=== PATIENT | male | born 1960 | race Caucasian/White ===

== ENCOUNTER 2025-10-18 15:24 | Inpatient (IN) | payer SELFPAY ==
[~2025-10-18] VITALS: Ht 181.6 cm; Wt 115.6 kg
--- NOTE | 2025-10-18 17:18 | DVH ---
CHEST RADIOGRAPH INDICATION: r/o ptx/effusion TECHNIQUE: Single frontal view of the chest was obtained COMPARISON: None FINDINGS: Lines and Tubes: None Lungs: Opacification of the right hemithorax with mediastinal shift to the left. No pneumothorax. Cardiomediastinal contours: Limited evaluation of the Heart size due to Complete opacification of the right hemithorax. Bones: No acute osseous abnormality. IMPRESSION: Complete opacification of the right hemithorax with leftward mediastinal shift which may be from large pleural effusion with associated atelectasis. Underlying pneumonia / mass can not be excluded.
[2025-10-18 17:28] LABS: Hematocrit 48.4 % (41.0-53.0); Hemoglobin 16.6 g/dL (13.5-17.5); Mean Corpuscular Hemoglobin 30.0 pg (28.0-32.0); Mean Corpuscular Volume 87.5 fL (80.0-100.0); Nucleated Red Blood Cells % 0.6 %
--- NOTE | 2025-10-18 17:32 | DVH ---
NON-CONTRAST CHEST COMPUTERIZED TOMOGRAPHY REASON FOR STUDY: Evaluate right pleural effusion COMPARISON: XY CHEST PORTABLE on DOS: 10/18/25 TECHNIQUE: The exam was performed on a multidetector spiral scanner. Spiral scans were acquired through the chest. 2-D coronal and sagittal reformatted images were provided. Radiation optimization: All CT scans at this facility use at least one of these dose optimization techniques: Automated exposure control mA and/or kV adjustment per patient size (includes targeted exams where dose is matched to clinical indication) or iterative reconstruction. RADIATION DOSE: CTDI: 25.25 mGy DLP: 1134.66 mGy-cm FINDINGS: There is complete consolidation of the right lung. There is slight heterogeneity of the collapsed right lung. There is an approximately 5.2 cm spherical lesion in the anterior portion of the collapsed right lung, likely within the right middle lobe. There is a very large right pleural effusion that is causing depression of the right hemidiaphragm and leftward shift of the mediastinum. There is no pericardial effusion. There is no thoracic aortic aneurysm. The visualized thyroid gland is unremarkable. No pathologic lymphadenopathy is identified by size criteria within the limitations of this noncontrast study. The visualized upper abdomen is grossly unremarkable. No acute osseous abnormality is identified. IMPRESSION: Large right pleural effusion causing depression of the right hemidiaphragm and leftward shift of the mediastinum and complete collapse of the right lung. There is a 5.2 cm spherical lesion in the anterior portion of the collapsed right lung that is concerning for malignancy. Recommend contrast-enhanced CT of the chest AFTER thoracentesis and the lung has been allowed to re-expand in order to better see the anatomy and evaluate the concerning lesion.
[2025-10-18 17:35] LABS: Chloride 101 mmol/L (98-107); Potassium 4.4 mmol/L (3.5-5.1); Sodium 140 mmol/L (136-145)
[2025-10-18 17:36] LABS: Anion Gap 12 (5-15); Carbon Dioxide 27 mmol/L (20-31)
[2025-10-18 17:37] LABS: Calcium 9.7 mg/dL (8.7-10.4)
--- NOTE | 2025-10-18 17:39 | ED.PDOC ---
SOB-HPI HPI Comments 65-year-old male who presents to the ED with chief complaint of shortness of breath. Patient's that he has been have shortness of breath for the past two weeks. Patient states symptoms started a few weeks ago when he went bowling and stated he felt a sharp sting of the right side of his chest after throwing the ball. Patient states since he has had increased shortness of breath which has worsened with exertion. Patient states he was seen at [facility] earlier today and states they told him he has a large pleural effusion on the right side of his chest and sent to the ED for further evaluation. Patient in the ED states he is having right-sided rib pain that radiates to the back. Patient otherwise in the ED has noted O2 saturation of 96% on room air. Chief Complaint: Shortness of Breath Time Seen by MD: 17:35 Reviewed notes: Medications, Allergies Information Source: Patient, Spouse Mode of Arrival: Ambulatory Brought in by: spouse Severity: Moderate Timing: Hours Past Medical History PAST MEDICAL HISTORY: Unknown Surgical History: Unknown Family History Family History: Unknown Social History Smoker: Non-Smoker Alcohol: Denies ETOH Use Drugs: Denies Drug Use Lives In: Home Constitutional: denies: chills, diaphoresis, fatigue, fever, malaise, sweats, weakness, others EENTM: denies: blurred vision, double vision, ear bleeding, ear discharge, ear drainage, ear pain, ear ringing, eye pain, eye redness, hearing loss, mouth pain, mouth swelling, nasal discharge, nose bleeding, nose congestion, nose pain, photophobia, tearing, throat pain, throat swelling, voice changes, others Respiratory: reports: shortness of breath; denies: cough, hemoptysis, orthopnea, SOB at rest, SOB with excertion, stridor, wheezing, others Cardiovascular: denies: chest pain, dizzy spells, diaphoresis, Dyspnea on exertion, edema, irregular heart beat, left arm pain, lightheadedness, palpi tations, PND, syncope, others Gastrointestinal: denies: abdomen distended, abdominal pain, blood streaked bowels, constipated, diarrhea, dysphagia, difficulty swallowing, hematemesis, melena, nausea, poor appetite, poor fluid intake, rectal bleeding, rectal pain, vomiting, others Genitourinary: denies: burning, dysuria, flank pain, frequency, hematuria, incontinence, penile discharge, penile sore, pain, testicle pain, testicle swelling, urgency, others Neurological: denies: dizziness, fainting, headache, left sided numbness, left sided weakness, numbness, paresthesia, pre-existing deficit, right sided numbness, right sided weakness, seizure, speech problems, tingling, tremors, weakness, others Musculoskeletal: denies: back pain, gout, joint pain, joint swelling, muscle pain, muscle stiffness, neck pain, others Integumetry: denies: bruises, change in color, change in hair/nails, dryness, laceration, lesions, lumps, rash, wounds, others Allergic/Immunocompromised: denies: Difficulty Healing, Frequent Infections, Hives, Itching, others Hematologic/Lymphatic: denies: anemia, blood clots, easy bleeding, easy bruis ing, swollen glands, others Endocrine: denies: excessive hunger, excessive sweating, excessive thirst, exc essive urination, flushing, intolerance to cold, intolerance to heat, unexplained weight gain, unexplained weight loss, others Psychiatric: denies: anxiety, bipolar disorder, depression, hopeless, panic disorder, schizophrenia, sleepless, suicidal, others All Other Systems: Reviewed and Negative Physical Exam General Appearance: No Apparent Distress, Normal HEENT: Normal ENT Inspection, Pharynx Normal, TMs Normal Neck: Full Range of Motion, Non-Tender, Normal, Normal Inspection Respiratory: Decreased Breath Sounds (Diminished lung sounds at a right side of chest, ), No Accessory Muscle Use, No Respiratory Distress Cardiovascular: No Edema, No JVD, No Murmur, No Gallop, Normal Peripheral Pulses, Regular Rate/Rhythm Breast Exam: Deferred Gastrointestinal: No Organomegaly, Non Tender, No Pulsatile Mass, Normal Bowel Sounds, Soft Genitalia: Deferred Pelvic: Deferred Rectal: Deferred Extremities: No calf tenderness, Normal capillary refill, Normal inspection, Normal range of motion, Non-tender, No pedal edema Musculoskeletal : Apperance: Normal Neurologic: Alert, clinical interviewer II-XII nml as Tested, No Motor Deficits, Normal Affect, Normal Mood, No Sensory Deficits Cerebellar Function: Normal Reflexes: Normal Skin: Dry, Normal Color, Warm Lymphatic: No Adenopathy Was a procedure done? Was a procedure done?: No Differential Dx Differential Diagnosis: Cardiogenic Shock, CHF, COPD, Pneumonia, Pulmonary Embolism, Respiratory Distress Comments Pleural effusion, sepsis, ARDS, pneumonia, X-Ray, Labs, Meds, VS Vital Signs Date Time Temp Pulse Resp B/P (MAP) Pulse Ox O2 Delivery O2 Flow Rate FiO2 10/18/25 19:03 98.0 102 17 129/83 (98) 96 98.0 10/18/25 19:03 102 17 129/83 10/18/25 18:35 Nasal Cannula* 2 28 10/18/25 18:33 111 16 164/90 10/18/25 18:33 98.0 103 17 164/96 (118) 97 98.0 10/18/25 15:39 118 10/18/25 15:29 98.2 118 20 152/86 94 98.2 Lab Test 10/18/25 18:10 10/18/25 17:16 Range/Units Troponin I High Sensitivity 3 L 3 L </=54 ng/L White Blood Count 14.4 H 4.4-10.8 10^3/uL Red Blood Count 5.54 4.5-5.90 10^6/uL Hemoglobin 16.6 13.5-17.5 g/dL Hematocrit 48.4 41.0-53.0 % Mean Corpuscular Volume 87.5 80.0-100.0 fL Mean Corpuscular Hemoglobin 30.0 28.0-32.0 pg Mean Corpuscular Hemoglobin Concent 34.3 32.0-36.0 g/dL Red Cell Distribution Width 12.5 11.8-14.3 % Platelet Count 387 140-450 10^3/uL Mean Platelet Volume 9.3 6.9-10.8 fL Neutrophils (%) (Auto) 89.0 H 37.0-80.0 % Lymphocytes (%) (Auto) 6.1 L 10.0-50.0 % Monocytes (%) (Auto) 4.1 0.0-12.0 % Eosinophils (%) (Auto) 0.2 0.0-7.0 % Basophils (%) (Auto) 0.6 0.0-2.0 % Neutrophils # (Auto) 12.9 H 1.6-8.6 10 ^3/uL Lymphocytes # (Auto) 0.9 0.4-5.4 10 ^3/uL Monocytes # (Auto) 0.6 0-1.3 10 ^3/uL Eosinophils # (Auto) 0 0-0.8 10 ^3/uL Basophils # (Auto) 0.1 0-0.2 10 ^3/uL Nucleated Red Blood Cells 0.6 % Sodium Level 140 136-145 mmol/L Potassium Level 4.4 3.5-5.1 mmol/L Chloride Level 101 98-107 mmol/L Carbon Dioxide Level 27 20-31 mmol/L Anion Gap 12 5-15 Blood Urea Nitrogen 15 9-23 mg/dL Creatinine 1.07 0.700-1.30 mg/dL Glomerular Filtration Rate Calc 77 >90 mL/min BUN/Creatinine Ratio 14.0 10.0-20.0 Serum Glucose 126 H 74-106 mg/dL Calcium Level 9.7 8.7-10.4 mg/dL B-Type Natriuretic Peptide 64.57 0-100 pg/mL Current Medications Medications (Trade) Dose Ordered Sig/Jomar Route Start Time Stop Time Status Last Admin Morphine Sulfate 4 mg ONCE ONCE IV 10/18/25 18:30 10/18/25 18:43 DC 10/18/25 18:33 Ondansetron HCl (Zofran) 4 mg ONCE ONCE IV 10/18/25 18:30 10/18/25 18:43 DC 10/18/25 18:33 [place] [id number] Ph: [phone] DIAGNOSTIC IMAGING Diagnostic Imaging Report : [id number] Signed PATIENT: DEVI JAUREGUI ACCT: [id number] UNIT: [id number] : 1960 LOC: ER ROOM / BED: / AGE / SEX: 65 / M ADM STATUS: REG ER SERVICE 1645 ORDERING PHYSICIAN: YINKA CHAPMAN MD PROCEDURE(s): CXRP - CHEST PORTABLE REASON: r/o ptx/effusion ORDER NUMBER(s): [id number], ACCESSION NUMBER(s): [id number] CHEST RADIOGRAPH INDICATION: r/o ptx/effusion TECHNIQUE: Single frontal view of the chest was obtained COMPARISON: None FINDINGS: Lines and Tubes: None Lungs: Opacification of the right hemithorax with mediastinal shift to the left. No pneumothorax. Cardiomediastinal contours: Limited evaluation of the Heart size due to Complete opacification of the right hemithorax. Bones: No acute osseous abnormality. IMPRESSION: Complete opacification of the right hemithorax with leftward mediastinal shift which may be from large pleural effusion with associated atelectasis. Underlying pneumonia / mass can not be excluded. ATED BY: MIRA PAUL DO DICTATED DATE/TIME: 10/18/251715 SIGNED BY: MIRA PAUL DO SIGNED DATE/TIME: 10/18/251715 CC: X-Ray, Labs, Meds, VS Comment 65-year-old male here today with a presentation consistent with a significant right-sided pleural effusion with a evidence of a mass concerning for malignancy as per chest x-ray/CT scan. Patient is saturating in the upper 90s on room air and is in no significant respiratory distress. Patient was given pain medication was significantly improved his symptoms as well. Given the mass seen on imaging and the patient overall stable on room air and without evidence of significant respiratory distress, plan was made to defer the thoracentesis versus chest tube for the admitting team after evaluating him in the morning with a likely pulmonology consultation as it is likely that the patient will require specialized testing such as pathology and serology tests to evaluate for tumor markers. Plan made to admit the patient for further management and care. Images Reviewed?: Images reviewed and evaluated by me Time of 1ST Reevaluation: 18:05 Reevaluation 1ST: Unchanged Patient Education/Counseling: Diagnosis, Treatment Family Education/Counseling: Diagnosis, Treatment SEPSIS Sepsis Screen Date sepsis recognized/suspect: Oct 18, 2025 Time Sepsis recognized/suspect: 1529 Recent Procedure: No On Antibiotic Therapy: No Respiratory Rate >20: No Heart Rate >90: Yes Temp<36 C (96.8 F) or >38.3 C: No SBP <90 or MAP <65 mmHG: No New Acute Mental Status Change: No Is the patient on CPAP, BIPAP,: No Physician Orders Electrocardigram (10/18/25 15:48) Chest Portable (10/18/25 16:45) Troponin-I Hs (10/18/25 19:45) Chest Without Contrast (10/18/25 16:52) Vital Signs Date Time Temp Pulse Resp B/P (MAP) Pulse Ox O2 Delivery O2 Flow Rate FiO2 10/18/25 19:03 98.0 102 17 129/83 (98) 96 98.0 10/18/25 19:03 102 17 129/83 10/18/25 18:35 Nasal Cannula* 2 28 10/18/25 18:33 111 16 164/90 10/18/25 18:33 98.0 103 17 164/96 (118) 97 98.0 10/18/25 15:39 118 10/18/25 15:29 98.2 118 20 152/86 94 98.2 Laboratory Tests Test 10/18/25 17:16 White Blood Count 14.4 10^3/uL (4.4-10.8) H Medications Medications Dose Ordered Sig/Jomar Route Start Time Stop Time Status Last Admin Dose Admin Morphine Sulfate 4 mg ONCE ONCE IV 10/18/25 18:30 10/18/25 18:43 DC 10/18/25 18:33 Ondansetron HCl 4 mg ONCE ONCE IV 10/18/25 18:30 10/18/25 18:43 DC 10/18/25 18:33 Departure 1 Departure Time of Disposition: 19:43 Impression: Primary Impression: Pleural effusion Additional Impression: Lung mass Disposition: ADMITTED INPATIENT Admit to: Tele Condition: Guarded Critical Care Note Critical Care Time?: Yes (30 min-critical care time only) Stability Stability form required: No Heart Score Heart Score: Heart Score Response (Comments) Value History Slightly Suspicious 0 EKG Normal 0 Age 45-64 1 Risk Factors No known risk factors 0 Troponin Normal limit 0 Total 1 I personally scribed for YINKA CHAPMAN MD ([facility]) on 10/18/25 at 17:39. Electron[facility] submitted by [facility]da Carlson [facility] I personally scribed for YINKA CHAPMAN MD ([email or web address]) on 10/18/25 at 17:40. Electronically submitted by Eda Carlson ([facility]). YINKA CHAPMAN MD Oct 18, 2025 17:39
[2025-10-18 17:42] LABS: BUN/Creatinine Ratio 14.0 (10.0-20.0); Blood Urea Nitrogen 15 mg/dL (9-23)
[2025-10-18 17:45] LABS: Glucose 126 mg/dL (74-106)
[2025-10-18] MEDS: MORPHINE SULFATE 4 MG/ML SYR/VIAL IV ONE (18:33)
[2025-10-18] MEDS: ONDANSETRON HCL 4 MG/2 ML VIAL IV ONE (18:33)
[2025-10-18] MEDS ORDERED: TEMAZEPAM 15 MG CAP PO PRN (19:45)
[2025-10-18] MEDS ORDERED: ACETAMINOPHEN 325 MG TAB PO PRN (19:45)
[2025-10-18 20:19] VITALS: PULSE 103; RESP 20; O2SAT 97
[2025-10-18] MEDS: HYDROcodone-ACET 5/325MG TAB PO PRN (22:12)
--- NOTE | 2025-10-18 22:15 | DVHHP2 ---
History of Present Illness Reason for Visit: Shortness for breath History of Present Illness 65-year-old male presents for evaluation of shortness for breath. Patient reports developing shortness for breath proximally two weeks ago after he went bowling and felt a sharp sting to his right side when he threw the ball. He states that since then the shortness for breath has become worse especially with exertion. No cough or fever. He also reports right-sided rib pain. Denies chest pain Past Medical History Denies Past Surgical History Appendectomy, hernia repair Family History Noncontributory Smoke: No ALCOHOL: occassional Drugs: None Lives: with Family Review of Systems Review of Systems Review of systems are currently negative otherwise addressed in HPI. Allergies: Coded Allergies: Penicillins (Verified Allergy, Unknown, 10/18/25) Medications Current Medications Medications Dose Ordered Sig/Jomar Route Start Time Stop Time Status Last Admin Dose Admin Albuterol 2.5 mg Q6HPRN PRN NEB 10/18/25 19:45 Acetaminophen/ Hydrocodone Bitart 1 tab Q4HP PRN PO 10/18/25 19:45 Temazepam 15 mg QHSP PRN PO 10/18/25 19:45 Ondansetron HCl 4 mg Q4HP PRN IV 10/18/25 19:45 Acetaminophen 650 mg Q6HP PRN PO 10/18/25 19:45 Exam Vital Signs Vital Signs Date Time Temp Pulse Resp B/P (MAP) Pulse Ox O2 Delivery O2 Flow Rate FiO2 10/18/25 20:19 98.1 103 18 126/84 (98) 97 98.1 10/18/25 20:19 Nasal Cannula* 2 28 Exam Gen: 65-year-old male in mild distress, obese Skin: Warm, dry, normal color and texture, no rash. HEENT: Normocephalic atraumatic, mucous membranes moist and pink. Neck: Cervical and supraclavicular nodes normal without enlargement, trachea is midline, thyroid gland is normal without masses. Pulmonary: Absent breath sounds right lung Cardiac: Regular rate and rhythm. No murmur Abdomen: Soft, nontender, nondistended, bowel sounds present all 4 quadrants, no guarding, no rigidity, no organomegaly. Extremities: No cyanosis, clubbing, no edema Neuro: Cranial nerves II through XII grossly intact, normal affect and speech, no focal motor deficits. Labs/Xrays ORDERING PHYSICIAN: YINKA CHAPMAN MD PROCEDURE(s): CX2CT - CHEST WITHOUT CONTRAST REASON: eval for right sided effusion ORDER NUMBER(s): [id number], ACCESSION NUMBER(s): [id number] NON-CONTRAST CHEST COMPUTERIZED TOMOGRAPHY REASON FOR STUDY: Evaluate right pleural effusion COMPARISON: XY CHEST PORTABLE on DOS: 10/18/25 TECHNIQUE: The exam was performed on a multidetector spiral scanner. Spiral scans were acquired through the chest. 2-D coronal and sagittal reformatted images were provided. Radiation optimization: All CT scans at this facility use at least one of these dose optimization techniques: Automated exposure control mA and/or kV adjustment per patient size (includes targeted exams where dose is matched to clinical indication) or iterative reconstruction. RADIATION DOSE: CTDI: 25.25 mGy DLP: 1134.66 mGy-cm FINDINGS: There is complete consolidation of the right lung. There is slight heterogeneity of the collapsed right lung. There is an approximately 5.2 cm spherical lesion in the anterior portion of the collapsed right lung, likely within the right middle lobe. There is a very large right pleural effusion that is causing depression of the right hemidiaphragm and leftward shift of the mediastinum. There is no pericardial effusion. There is no thoracic aortic aneurysm. The visualized thyroid gland is unremarkable. No pathologic lymphadenopathy is identified by size criteria within the limitations of this noncontrast study. The visualized upper abdomen is grossly unremarkable. No acute osseous abnormality is identified. IMPRESSION: Large right pleural effusion causing depression of the right hemidiaphragm and leftward shift of the mediastinum and complete collapse of the right lung. There is a 5.2 cm spherical lesion in the anterior portion of the collapsed right lung that is concerning for malignancy. Recommend contrast-enhanced CT of the chest AFTER thoracentesis and the lung has been allowed to re-expand in order to better see the anatomy and evaluate the concerning lesion. Labs Test 10/18/25 20:13 10/18/25 17:16 Range/Units Troponin I High Sensitivity < 3 L </=54 ng/L White Blood Count 14.4 H 4.4-10.8 10^3/uL Red Blood Count 5.54 4.5-5.90 10^6/uL Hemoglobin 16.6 13.5-17.5 g/dL Hematocrit 48.4 41.0-53.0 % Mean Corpuscular Volume 87.5 80.0-100.0 fL Mean Corpuscular Hemoglobin 30.0 28.0-32.0 pg Mean Corpuscular Hemoglobin Concent 34.3 32.0-36.0 g/dL Red Cell Distribution Width 12.5 11.8-14.3 % Platelet Count 387 140-450 10^3/uL Mean Platelet Volume 9.3 6.9-10.8 fL Neutrophils (%) (Auto) 89.0 H 37.0-80.0 % Lymphocytes (%) (Auto) 6.1 L 10.0-50.0 % Monocytes (%) (Auto) 4.1 0.0-12.0 % Eosinophils (%) (Auto) 0.2 0.0-7.0 % Basophils (%) (Auto) 0.6 0.0-2.0 % Neutrophils # (Auto) 12.9 H 1.6-8.6 10 ^3/uL Lymphocytes # (Auto) 0.9 0.4-5.4 10 ^3/uL Monocytes # (Auto) 0.6 0-1.3 10 ^3/uL Eosinophils # (Auto) 0 0-0.8 10 ^3/uL Basophils # (Auto) 0.1 0-0.2 10 ^3/uL Nucleated Red Blood Cells 0.6 % Sodium Level 140 136-145 mmol/L Potassium Level 4.4 3.5-5.1 mmol/L Chloride Level 101 98-107 mmol/L Carbon Dioxide Level 27 20-31 mmol/L Anion Gap 12 5-15 Blood Urea Nitrogen 15 9-23 mg/dL Creatinine 1.07 0.700-1.30 mg/dL Glomerular Filtration Rate Calc 77 >90 mL/min BUN/Creatinine Ratio 14.0 10.0-20.0 Serum Glucose 126 H 74-106 mg/dL Calcium Level 9.7 8.7-10.4 mg/dL B-Type Natriuretic Peptide 64.57 0-100 pg/mL SEPSIS Sepsis Screen Date sepsis recognized/suspect: Oct 18, 2025 Time Sepsis recognized/suspect: 2021 Recent Procedure: No On Antibiotic Therapy: No Respiratory Rate >20: No Heart Rate >90: No Temp<36 C (96.8 F) or >38.3 C: No SBP <90 or MAP <65 mmHG: No New Acute Mental Status Change: No Is the patient on CPAP, BIPAP,: No Physician Orders Electrocardigram (10/18/25 15:48) Chest Portable (10/18/25 16:45) Chest Without Contrast (10/18/25 16:52) Albuterol Medneb (Ventolin Medneb) (10/18/25 19:45) * Radiologist Consult (10/18/25 19:40) *Consult (10/18/25 19:40) Basic Metabolic Panel (10/19/25 04:00) Admit (10/18/25 19:40) Hydrocodone-Acet 5/325mg Tab ([place] 5/32 (10/18/25 19:45) Temazepam (Restoril) (10/18/25 19:45) Ondansetron Hcl (Zofran) (10/18/25 19:45) Complete Blood Count (10/19/25 04:00) Cardiac Diet-2gna,Lofat,Lochol (10/19/25 Breakfast) Echo 2d Mode Cardiac Dop (10/18/25 19:40) Condition: Stable (10/18/25 19:40) Acetaminophen Tablet (Tylenol Tablet) (10/18/25 19:45) Bedrest With Bathroom Privileg (10/18/25 19:40) D-Dimer (10/18/25 22:10) Vital Signs Date Time Temp Pulse Resp B/P (MAP) Pulse Ox O2 Delivery O2 Flow Rate FiO2 10/18/25 20:19 98.1 103 18 126/84 (98) 97 98.1 10/18/25 20:19 103 20 97 Nasal Cannula* 2 28 10/18/25 20:00 103 10/18/25 19:03 98.0 102 17 129/83 (98) 96 98.0 10/18/25 19:03 102 17 129/83 10/18/25 18:35 Nasal Cannula* 2 28 10/18/25 18:33 111 16 164/90 10/18/25 18:33 98.0 103 17 164/96 (118) 97 98.0 10/18/25 15:39 118 10/18/25 15:29 98.2 118 20 152/86 94 98.2 Laboratory Tests Test 10/18/25 17:16 White Blood Count 14.4 10^3/uL (4.4-10.8) H Medications Medications Dose Ordered Sig/Jomar Route Start Time Stop Time Status Last Admin Dose Admin Morphine Sulfate 4 mg ONCE ONCE IV 10/18/25 18:30 10/18/25 18:43 DC 10/18/25 18:33 4 MG Ondansetron HCl 4 mg ONCE ONCE IV 10/18/25 18:30 10/18/25 18:43 DC 10/18/25 18:33 4 MG Assessment/Plan Assessment/Plan Assessment Large right pleural effusion Acute respiratory distress Obesity Plan Admit the patient to Med surge to the hospitalist Radiology/pulmonary consult Med nebs Continue treatment per orders. Plan discussed with: Patient My Orders Orders - NEIL JEAN-BAPTISTE Procedure Category Date Status Time Albuterol Medneb PHA 10/18/25 In Process (Ventolin Medneb) 19:45 * Radiologist Consult CONS 10/18/25 Transmitted 19:40 *Consult CONS 10/18/25 Transmitted 19:40 Basic Metabolic Panel LAB 10/19/25 Verified 04:00 Admit ADMIT 10/18/25 Transmitted 19:40 Hydrocodone-Acet PHA 10/18/25 In Process 5/325mg Tab ([place] 19:45 Temazepam (Restoril) PHA 10/18/25 In Process 19:45 Ondansetron Hcl PHA 10/18/25 In Process (Zofran) 19:45 Complete Blood Count LAB 10/19/25 Verified 04:00 Cardiac DIET 10/19/25 Transmitted Diet-2gna,Lofat,Lochol Breakfast Echo 2d Mode Cardiac US 10/18/25 Logged DOP 19:40 Condition: Stable KORTNEY 10/18/25 In Process 19:40 Acetaminophen Tablet PHA 10/18/25 In Process (Tylenol Tablet) 19:45 Bedrest With Bathroom KORTNEY 10/18/25 In Process Privileg 19:40 D-Dimer LAB 10/18/25 Logged 22:10 Date of Service: Oct 18, 2025 Billing Provider: NEIL JEAN-BAPTISTE Common Visit Codes: [id number] INP/OBS CARE (HIGH) NEIL JEAN-BAPTISTE Oct 18, 2025 22:15
[2025-10-18 22:52] VITALS: BP 126/84; PULSE 103; RESP 18; TEMP 98.1; O2SAT 97
[2025-10-19] VITALS (9 sets, daily range): BP systolic 115–147; BP diastolic 62–96; PULSE 89–100; RESP 17–20; TEMP 96.8–98.3; O2SAT 93–97
--- NOTE | 2025-10-19 07:07 | ECG ---
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
[2025-10-19 08:40] LABS: Hematocrit 47.5 % (41.0-53.0); Hemoglobin 16.0 g/dL (13.5-17.5); Mean Corpuscular Hemoglobin 29.7 pg (28.0-32.0); Mean Corpuscular Volume 88.3 fL (80.0-100.0); Nucleated Red Blood Cells % 0.2 %
[2025-10-19 08:41] LABS: Chloride 101 mmol/L (98-107); Potassium 4.4 mmol/L (3.5-5.1); Sodium 140 mmol/L (136-145)
[2025-10-19 08:42] LABS: Anion Gap 10 (5-15); Carbon Dioxide 29 mmol/L (20-31)
[2025-10-19 08:43] LABS: Calcium 9.9 mg/dL (8.7-10.4)
[2025-10-19 08:48] LABS: BUN/Creatinine Ratio 15.7 (10.0-20.0); Blood Urea Nitrogen 19 mg/dL (9-23)
[2025-10-19 08:52] LABS: Glucose 135 mg/dL (74-106)
[2025-10-19] MEDS: ONDANSETRON HCL 4 MG/2 ML VIAL IV PRN (09:01)
[2025-10-19 10:10] LABS: INR 1.12 (0.9-1.15); Partial Thromboplastin Time 26.6 SEC (24.5-34.5); Prothrombin Time 11.7 sec (9.3-11.8)
[2025-10-19] MEDS: MORPHINE SULFATE 4 MG/ML SYR/VIAL IV PRN (14:13)
--- NOTE | 2025-10-19 14:57 | DVH ---
US THORACENTESIS, HISTORY: Large pleural effusion. PROCEDURE: Informed consent was obtained. The patient was seated on the bed. A limited localization ultrasound of the right thorax was obtained, and the optimal approach was marked on the skin. The area was prepped with chlorhexidine which was allowed to dry and draped in the usual sterile fashion. Time out was performed. The skin and the soft tissues were infiltrated with 1% lidocaine. A 5.5 Norwegian centesis needle catheter was advanced into right pleural space. Following aspiration of fluid, the catheter was advanced and the needle removed. About 1500 cc of fluid was drained. No immediate complication was identified. FINDINGS: Large right pleural effusion. Aspirated fluid is serosanguinous. IMPRESSION: right thoracentesis with 1.5L removed.
--- NOTE | 2025-10-19 16:30 | DVH ---
CHEST RADIOGRAPH INDICATION: S/P THORACENTESIS TECHNIQUE: Single frontal view of the chest was obtained COMPARISON: XY CHEST PORTABLE on DOS: 10/18/25 FINDINGS: Lines and Tubes: None Lungs: Persistent opacification of the right kandice thorax is noted unchanged from 10/18/2025. Pleura: No effusion. No pneumothorax. Cardiomediastinal contours: Unremarkable Bones: No acute osseous abnormality. IMPRESSION: 1. Persistent opacification right kandice thorax. Findings consistent with large right pleural effusion.
--- NOTE | 2025-10-19 17:44 | DVHPN2 ---
Subjective SOB still present Reviewed: H&P Changes from previous H/P or p: No Changes Objective Vitals Vital Signs Date Time Temp Pulse Resp B/P (MAP) Pulse Ox O2 Delivery O2 Flow Rate FiO2 10/19/25 16:56 97.2 89 19 147/84 (105) 96 97.2 10/19/25 07:02 Room Air* 0 21 General Appearance: Alert, Oriented X3 HEENT: Atraumatic Cardiovascular: Regular rate, Normal S1, Normal S2 Abdomen: Normal bowel sounds Medications Current Medications Medications Dose Ordered Sig/Jomar Route Start Time Stop Time Status Last Admin Dose Admin Albuterol 2.5 mg Q6HPRN PRN NEB 10/18/25 19:45 Acetaminophen/ Hydrocodone Bitart 1 tab Q4HP PRN PO 10/18/25 19:45 10/19/25 09:00 1 TAB Temazepam 15 mg QHSP PRN PO 10/18/25 19:45 Ondansetron HCl 4 mg Q4HP PRN IV 10/18/25 19:45 10/19/25 14:12 4 MG Acetaminophen 650 mg Q6HP PRN PO 10/18/25 19:45 Morphine Sulfate 2 mg Q4HPRN PRN IV 10/19/25 14:15 10/19/25 14:13 2 MG Laboratory Results Laboratory Tests 10/19/25 08:10 Chemistry Test 10/19/25 08:10 Calcium Level 9.9 mg/dL (8.7-10.4) Coagulation Test 10/18/25 20:13 10/19/25 09:37 D-Dimer, Quantitative 0.60 mg/L FEU (0.0-0.49) H Prothrombin Time 11.7 sec (9.3-11.8) Prothrombin Time INR 1.12 (0.9-1.15) Activated Partial Thromboplast Time 26.6 SEC (24.5-34.5) Assessment/Plan Assessment/Plan Large right pleural effusion acute hypoxic respiratory failure due to pleural effusion Obesity Tx Pending thoracocentesis Oxygen Plan discussed with: Patient My Orders Orders - RYAN CAPPS MD Procedure Category Date Status Time Thoracentesis US 10/19/25 Resulted Morphine Sulfate PHA 10/19/25 In Process Injection 14:15 Date of Service: Oct 19, 2025 Billing Provider: RYAN CAPPS MD Common Visit Codes: [id number] INP/OBS CARE(HIGH) RYAN CAPPS MD Oct 19, 2025 17:44
--- NOTE | 2025-10-19 23:50 | DVHINCON2 ---
Date of service: Oct 18, [address] Vaca Reason for Consultation Acute hypoxic respiratory failure and pleural effusion History of Present Illness A 65-year-old man with no significant past medical history except for hernia repair and appendectomy who presented to ED on 10/18/25 with chief complaint of shortness of breath. Patient reported shortness of breath x2 weeks; symptoms starting a few weeks ago when he went bowling and felt a sharp sting to his right side when he threw the ball. He has had increased shortness of breath s katelin, which has worsened with exertion. Patient was seen at [facility] on day of presentation and was told he had a large right pleural effusion, sent to the ED for further evaluation. While in the ED, patient c/o right-sided rib pain radiating to the back. O2 saturation was 96% on room air. Patient was admitted for further care. Pulmonary consultation is requested for evaluation and management of acute hypoxic respiratory failure and pleural effusion. Review of Systems: 14-point review of systems negative unless otherwise noted above. Past Medical History: Denies Past Surgical History: Appendectomy, hernia repair Medications: Reviewed. Allergies: Penicillin Family History: No family history of premature CAD. No family history of lung disorders. Social History: Nonsmoker. Occasional alcohol use. No illicit drug use. Family History: Patient reports no known family medical history. Allergies: Coded Allergies: Penicillins (Verified Allergy, Unknown, 10/18/25) Home Meds No Active Prescriptions or Reported Meds Current Medications Current Medications Medications (Trade) Dose Ordered Sig/Jomar Route PRN Reason Start Time Stop Time Status Last Admin Morphine Sulfate 2 mg Q4HPRN PRN IV SEVERE PAIN (7-10 PAIN SCALE) 10/19/25 14:15 10/19/25 18:28 Vital Signs Vital Signs Date Time Temp Pulse Resp B/P (MAP) Pulse Ox O2 Delivery O2 Flow Rate FiO2 10/19/25 21:25 95 Nasal Cannula* 2 28 10/19/25 21:00 98.3 96 18 120/62 (81) 98.3 Physical Exam Gen.: Patient lying in bed in no apparent distress. On supplemental oxygen. Head: Normocephalic, atraumatic. Eyes: EOMI/PERRLA. Ears: Normal hearing. Normal anatomy. Neck/trachea: Trachea midline, supple. Nose: Normal external anatomy. Mouth: Moist mucous membranes. Chest: Decreased air entry bilaterally. No wheezing or rhonchi. Cardiovascular: Positive S1, positive S2. Regular rate and rhythm. Abdomen: Positive bowel sounds in all 4 quadrants. Soft, non-tender, non- distended. : Deferred. Rectal: Deferred. Skin: Warm, dry. Intact. Extremities: 2+ radial pulses bilaterally. No lower extremity edema. Neuro: Awake, alert, oriented x3. No gross motor or sensory deficits. Cranial nerves II through XII intact. Gait not assessed. Labs/Diagnostic Data Labs Test 10/19/25 14:30 10/19/25 09:37 10/19/25 08:10 10/18/25 20:13 Range/Units Body Fluid Source Pleural fluid Body Fluid pH 8.0 Body Fluid WBC (Manual) 1808 H 0-200 CUMM Body Fluid RBC (Manual) 96565 H 0-2000 CUMM Body Fluid Mononuclear Cells 40 % Body Fluid Polymorphonuclear Cells 60 H 0-25 % Prothrombin Time 11.7 9.3-11.8 sec Prothrombin Time INR 1.12 0.9-1.15 Activated Partial Thromboplast Time 26.6 24.5-34.5 SEC White Blood Count 11.3 H 4.4-10.8 10^3/uL Red Blood Count 5.38 4.5-5.90 10^6/uL Hemoglobin 16.0 13.5-17.5 g/dL Hematocrit 47.5 41.0-53.0 % Mean Corpuscular Volume 88.3 80.0-100.0 fL Mean Corpuscular Hemoglobin 29.7 28.0-32.0 pg Mean Corpuscular Hemoglobin Concent 33.7 32.0-36.0 g/dL Red Cell Distribution Width 12.9 11.8-14.3 % Platelet Count 391 140-450 10^3/uL Mean Platelet Volume 9.8 6.9-10.8 fL Neutrophils (%) (Auto) 85.9 H 37.0-80.0 % Lymphocytes (%) (Auto) 8.2 L 10.0-50.0 % Monocytes (%) (Auto) 5.7 0.0-12.0 % Eosinophils (%) (Auto) 0.0 0.0-7.0 % Basophils (%) (Auto) 0.2 0.0-2.0 % Neutrophils # (Auto) 9.7 H 1.6-8.6 10 ^3/uL Lymphocytes # (Auto) 0.9 0.4-5.4 10 ^3/uL Monocytes # (Auto) 0.6 0-1.3 10 ^3/uL Eosinophils # (Auto) 0 0-0.8 10 ^3/uL Basophils # (Auto) 0 0-0.2 10 ^3/uL Nucleated Red Blood Cells 0.2 % Sodium Level 140 136-145 mmol/L Potassium Level 4.4 3.5-5.1 mmol/L Chloride Level 101 98-107 mmol/L Carbon Dioxide Level 29 20-31 mmol/L Anion Gap 10 5-15 Blood Urea Nitrogen 19 9-23 mg/dL Creatinine 1.21 0.700-1.30 mg/dL Glomerular Filtration Rate Calc 67 >90 mL/min BUN/Creatinine Ratio 15.7 10.0-20.0 Serum Glucose 135 H 74-106 mg/dL Calcium Level 9.9 8.7-10.4 mg/dL D-Dimer, Quantitative 0.60 H 0.0-0.49 mg/L FEU Troponin I High Sensitivity < 3 L </=54 ng/L Test 10/18/25 17:16 Range/Units B-Type Natriuretic Peptide 64.57 0-100 pg/mL Assessment Impression: Acute hypoxic respiratory failure Dependence on supplemental oxygen Pleural effusion Atelectasis, compressive Elevated D-dimer Obesity BMI 36.4 Snoring, likely DALY Plan: Supplemental oxygen Titrate to keep O2 sats above 92%. CXR notable for Complete opacification of the right hemithorax with leftward mediastinal shift which may be from large pleural effusion with associated atelectasis. Underlying pneumonia/mass cannot be excluded. CT chest reviewed; Large right pleural effusion causing depression of the right hemidiaphragm and leftward shift of the mediastinum and complete collapse of the right lung. A 5.2 cm spherical lesion in the anterior portion of the collapsed right lung that is concerning for malignancy. Recommend contrast-enhanced CT of the chest AFTER thoracentesis and the lung has been allowed to re-expand in order to better evaluate. Plan for right thoracentesis by IR Follow up Cardiology recs Bronchodilators. Incentive spirometry Monitor renal function. Monitor electrolytes. Supplement as necessary. Monitor ins and outs. Pain control Avoid oversedation Recommend diet and lifestyle modifications for weight reduction Obesity complicates all care DVT prophylaxis. Prognosis: Poor given patient's multiple co-morbidities. Rest of plan per hospitalist and other consultants. Thank you, Dr. Vaca, for allowing me to participate in this patient's care. Further recommendations will depend on the patient's clinical course. Please do not hesitate to contact me if you have any questions or concerns. This medical document was created using an electronic medical record system with [employer] dictation system. Although these documentations are being carefully reviewed, there may still be some phonetic and typographical changes. The errors are purely typographical, due to imperfection on the software program, and do not reflect any compromise in the patient's medical care. Plan discussed with: Patient, Other (RN/MD) Visit Coding Pulmonary Billing Provider: OSBALDO AYOUB MD Date of Service if different f: Oct 18, 2025 Common Visit Codes: [id number] INP/OBS CARE (HIGH) OSBALDO AYOUB MD Oct 19, 2025 23:50
--- NOTE | 2025-10-19 23:51 | DVHPN2 ---
Subjective DOS: 10/19/2025 Patient seen and examined at bedside. Remains on supplemental oxygen Overnight events reviewed. Reviewed: H&P Changes from previous H/P or p: No Changes Objective Vitals Vital Signs Date Time Temp Pulse Resp B/P (MAP) Pulse Ox O2 Delivery O2 Flow Rate FiO2 10/19/25 21:25 95 Nasal Cannula* 2 28 10/19/25 21:00 98.3 96 18 120/62 (81) 98.3 Exam Gen.: Patient lying in bed in no apparent distress. On supplemental oxygen. Head: Normocephalic, atraumatic. Eyes: EOMI/PERRLA. Ears: Normal hearing. Normal anatomy. Neck/trachea: Trachea midline, supple. Nose: Normal external anatomy. Mouth: Moist mucous membranes. Chest: Decreased air entry bilaterally. No wheezing or rhonchi. Cardiovascular: Positive S1, positive S2. Regular rate and rhythm. Abdomen: Positive bowel sounds in all 4 quadrants. Soft, non-tender, non- distended. : Deferred. Rectal: Deferred. Skin: Warm, dry. Intact. Extremities: 2+ radial pulses bilaterally. No lower extremity edema. Neuro: Awake, alert, oriented x3. No gross motor or sensory deficits. Cranial nerves II through XII intact. Gait not assessed. General Appearance: Alert, Oriented X3 HEENT: Atraumatic Cardiovascular: Regular rate, Normal S1, Normal S2 Abdomen: Normal bowel sounds Medications Current Medications Medications Dose Ordered Sig/Jomar Route Start Time Stop Time Status Last Admin Dose Admin Albuterol 2.5 mg Q6HPRN PRN NEB 10/18/25 19:45 Acetaminophen/ Hydrocodone Bitart 1 tab Q4HP PRN PO 10/18/25 19:45 10/19/25 09:00 Temazepam 15 mg QHSP PRN PO 10/18/25 19:45 Ondansetron HCl 4 mg Q4HP PRN IV 10/18/25 19:45 10/19/25 18:24 Acetaminophen 650 mg Q6HP PRN PO 10/18/25 19:45 Morphine Sulfate 2 mg Q4HPRN PRN IV 10/19/25 14:15 10/19/25 18:28 Laboratory Results Laboratory Tests 10/19/25 08:10 Chemistry Test 10/19/25 08:10 Calcium Level 9.9 mg/dL (8.7-10.4) Coagulation Test 10/19/25 09:37 Prothrombin Time 11.7 sec (9.3-11.8) Prothrombin Time INR 1.12 (0.9-1.15) Activated Partial Thromboplast Time 26.6 SEC (24.5-34.5) Assessment/Plan Assessment/Plan Impression: Acute hypoxic respiratory failure Dependence on supplemental oxygen Pleural effusion Atelectasis, compressive Elevated D-dimer Obesity Events: Remains on supplemental oxygen, 2 LPM NC Taper O2 as tolerated S/p right thoracentesis today with 1.5 liters of fluid removed from right pleural space. Continue bronchodilators Incentive spirometry Pain control Avoid oversedation Cardiology recs appreciated Labs and imaging reviewed. Rest of plan as noted below. Plan: Supplemental oxygen Titrate to keep O2 sats above 92%. CXR notable for complete opacification of the right hemithorax with leftward mediastinal shift which may be from large pleural effusion with associated atelectasis. Underlying pneumonia/mass cannot be excluded. CT chest reviewed; Large right pleural effusion causing depression of the right hemidiaphragm and leftward shift of the mediastinum and complete collapse of the right lung. A 5.2 cm spherical lesion in the anterior portion of the collapsed right lung that is concerning for malignancy. Recommend contrast-enhanced CT of the chest AFTER thoracentesis and the lung has been allowed to re-expand in order to better evaluate. Follow up Cardiology recs Bronchodilators. Incentive spirometry Monitor renal function. Monitor electrolytes. Supplement as necessary. Monitor ins and outs. Pain control Avoid oversedation Recommend diet and lifestyle modifications for weight reduction Obesity complicates all care DVT prophylaxis. Prognosis: Poor given patient's multiple co-morbidities. Rest of plan per hospitalist and other consultants. Thank you, Dr. Vaca, for allowing me to participate in this patient's care. Further recommendations will depend on the patient's clinical course. Please do not hesitate to contact me if you have any questions or concerns. This medical document was created using an electronic medical record system with [employer] system. Although these documentations are being carefully reviewed, there may still be some phonetic and typographical changes. The errors are purely typographical, due to imperfection on the software program, and do not reflect any compromise in the patient's medical care. Plan discussed with: Patient, Other (RN) My Orders Orders - OSBALDO AYOUB MD Procedure Category Date Status Time Obtain Consent For: ORDERS 10/19/25 Transmitted 10:48 Obtain Consent For KORTNEY 10/19/25 In Process Anesthesia 10:48 Body Fluid Culture W/ SERENITY 10/19/25 In Process GS 10:53 Glucose Body Fluid LAB 10/19/25 In Process 10:49 Protein, Body Fluid LAB 10/19/25 In Process 10:49 Lactate LAB 10/19/25 In Process Dehydrogenase, Fluid 10:49 Cytology SERENITY 10/19/25 Transmitted 10:53 Visit Coding Pulmonary Billing Provider: OSBALDO AYOUB MD Date of Service if different f: Oct 19, 2025 Common Visit Codes: [id number] INP/OBS CARE(HIGH) OSBALDO AYOUB MD Oct 19, 2025 23:51
[2025-10-20] VITALS (11 sets, daily range): BP systolic 118–142; BP diastolic 79–88; PULSE 80–87; RESP 18; TEMP 97.5–98.2; O2SAT 94–99
[2025-10-20] MEDS: ALBUTEROL SULF 2.5 MG/0.5ML(0.5%) NEB SOLN NEB PRN (09:04)
--- NOTE | 2025-10-20 13:05 | DVHPN2 ---
Subjective SOB still present Reviewed: H&P Changes from previous H/P or p: No Changes Objective Vitals Vital Signs Date Time Temp Pulse Resp B/P (MAP) Pulse Ox O2 Delivery O2 Flow Rate FiO2 10/20/25 12:51 97.9 81 18 120/79 (93) 97 97.9 10/20/25 09:04 Nasal Cannula 2.0 10/20/25 09:04 28 Intake/Output Intake and Output 10/20/25 07:00 Intake Total 1440 ml Balance 1440 ml Intake Oral 1440 ml # Voids 2 General Appearance: Alert, Oriented X3 HEENT: Atraumatic Cardiovascular: Regular rate, Normal S1, Normal S2 Abdomen: Normal bowel sounds Medications Current Medications Medications Dose Ordered Sig/Jomar Route Start Time Stop Time Status Last Admin Dose Admin Albuterol 2.5 mg Q6HPRN PRN NEB 10/18/25 19:45 10/20/25 09:04 2.5 MG Acetaminophen/ Hydrocodone Bitart 1 tab Q4HP PRN PO 10/18/25 19:45 10/20/25 11:26 1 TAB Temazepam 15 mg QHSP PRN PO 10/18/25 19:45 Ondansetron HCl 4 mg Q4HP PRN IV 10/18/25 19:45 10/20/25 02:44 4 MG Acetaminophen 650 mg Q6HP PRN PO 10/18/25 19:45 Morphine Sulfate 2 mg Q4HPRN PRN IV 10/19/25 14:15 10/20/25 02:48 2 MG Laboratory Results Laboratory Tests 10/19/25 08:10 Microbiology Microbiology Date/Time Source Procedure Growth Status 10/19/25 14:30 Pleural Fluid Gram Stain Pending Resulted 10/19/25 14:30 Pleural Fluid Body Fluid Culture - Preliminary No growth Resulted Assessment/Plan Assessment/Plan Large right pleural effusion acute hypoxic respiratory failure due to pleural effusion Obesity Tx s/p thoraco 1.5L Pending another thoraco Oxygen Plan discussed with: Patient My Orders Orders - RYAN CAPPS MD Procedure Category Date Status Time Thoracentesis US 10/19/25 Resulted Morphine Sulfate PHA 10/19/25 In Process Injection 14:15 Date of Service: Oct 20, 2025 Billing Provider: RYAN CAPPS MD Common Visit Codes: [id number] INP/OBS CARE(HIGH) RYAN CAPPS MD Oct 20, 2025 13:05
[2025-10-20 14:07] LABS: Glucose, Body Fluid 4.0 mg/dL (.); LD, Body Fluid 1173.0 IU/L (.)
--- NOTE | 2025-10-20 22:05 | DVHPN2 ---
Subjective DOS: 10/20/2025 Patient seen and examined at bedside. Remains on supplemental oxygen Overnight events reviewed. Reviewed: H&P Changes from previous H/P or p: No Changes Objective Vitals Vital Signs Date Time Temp Pulse Resp B/P (MAP) Pulse Ox O2 Delivery O2 Flow Rate FiO2 10/20/25 21:00 98.2 87 18 141/83 (102) 95 98.2 10/20/25 20:30 Nasal Cannula 2.0 10/20/25 20:30 28 Intake/Output Intake and Output 10/20/25 07:00 Intake Total 1440 ml Balance 1440 ml Intake Oral 1440 ml # Voids 2 Exam Gen.: Patient lying in bed in no apparent distress. On supplemental oxygen. Head: Normocephalic, atraumatic. Eyes: EOMI/PERRLA. Ears: Normal hearing. Normal anatomy. Neck/trachea: Trachea midline, supple. Nose: Normal external anatomy. Mouth: Moist mucous membranes. Chest: Decreased air entry bilaterally. No wheezing or rhonchi. Cardiovascular: Positive S1, positive S2. Regular rate and rhythm. Abdomen: Positive bowel sounds in all 4 quadrants. Soft, non-tender, non- distended. : Deferred. Rectal: Deferred. Skin: Warm, dry. Intact. Extremities: 2+ radial pulses bilaterally. No lower extremity edema. Neuro: Awake, alert, oriented x3. No gross motor or sensory deficits. Cranial nerves II through XII intact. Gait not assessed. General Appearance: Alert, Oriented X3 HEENT: Atraumatic Cardiovascular: Regular rate, Normal S1, Normal S2 Abdomen: Normal bowel sounds Medications Current Medications Medications Dose Ordered Sig/Jomar Route Start Time Stop Time Status Last Admin Dose Admin Albuterol 2.5 mg Q6HPRN PRN NEB 10/18/25 19:45 10/20/25 09:04 2.5 MG Acetaminophen/ Hydrocodone Bitart 1 tab Q4HP PRN PO 10/18/25 19:45 10/20/25 21:39 1 TAB Temazepam 15 mg QHSP PRN PO 10/18/25 19:45 Ondansetron HCl 4 mg Q4HP PRN IV 10/18/25 19:45 10/20/25 02:44 4 MG Acetaminophen 650 mg Q6HP PRN PO 10/18/25 19:45 Morphine Sulfate 2 mg Q4HPRN PRN IV 10/19/25 14:15 10/20/25 02:48 2 MG Laboratory Results Laboratory Tests 10/19/25 08:10 Microbiology Microbiology Date/Time Source Procedure Growth Status 10/19/25 14:30 Pleural Fluid Gram Stain - Final Resulted 10/19/25 14:30 Pleural Fluid Body Fluid Culture - Preliminary No growth Resulted Assessment/Plan Assessment/Plan Impression: Acute hypoxic respiratory failure Dependence on supplemental oxygen Pleural effusion Atelectasis, compressive Elevated D-dimer Obesity Events: Remains on supplemental oxygen, 2 LPM NC Taper O2 as tolerated S/p right thoracentesis on 10/19/25 with 1.5 liters of fluid removed from right pleural space. CXR post procedure revealed persistent opacification of right hemithorax. Findings c/w large right pleural effusion. Recommend repeat thoracentesis Consult Interventional Radiology for right thoracentesis. Continue bronchodilators Incentive spirometry Pain control Avoid oversedation Cardiology recs appreciated Labs and imaging reviewed. Rest of plan as noted below. Plan: Supplemental oxygen Titrate to keep O2 sats above 92%. CXR (10/18) notable for complete opacification of the right hemithorax with leftward mediastinal shift which may be from large pleural effusion with associated atelectasis. Underlying pneumonia/mass cannot be excluded. CT chest reviewed; Large right pleural effusion causing depression of the right hemidiaphragm and leftward shift of the mediastinum and complete collapse of the right lung. A 5.2 cm spherical lesion in the anterior portion of the collapsed right lung that is concerning for malignancy. Recommend contrast-enhanced CT of the chest AFTER thoracentesis and the lung has been allowed to re-expand in order to better evaluate. Follow up Cardiology recs Bronchodilators. Incentive spirometry Monitor renal function. Monitor electrolytes. Supplement as necessary. Monitor ins and outs. Pain control Avoid oversedation Recommend diet and lifestyle modifications for weight reduction Obesity complicates all care DVT prophylaxis. Prognosis: Poor given patient's multiple co-morbidities. Rest of plan per hospitalist and other consultants. Thank you, Dr. Vaca, for allowing me to participate in this patient's care. Further recommendations will depend on the patient's clinical course. Please do not hesitate to contact me if you have any questions or concerns. This medical document was created using an electronic medical record system with [employer] system. Although these documentations are being carefully reviewed, there may still be some phonetic and typographical changes. The errors are purely typographical, due to imperfection on the software program, and do not reflect any compromise in the patient's medical care. Plan discussed with: Patient, Other (RN Makenzie) My Orders Orders - OSBALDO AYOUB MD Procedure Category Date Status Time * Radiologist Consult CONS 10/20/25 Transmitted 17:33 Visit Coding Pulmonary Billing Provider: OSBALDO AYOUB MD Date of Service if different f: Oct 20, 2025 Common Visit Codes: [id number] INP/OBS CARE(HIGH) OSBALDO AYOUB MD Oct 20, 2025 22:05
[2025-10-21] VITALS (8 sets, daily range): BP systolic 124–151; BP diastolic 81–92; PULSE 81–85; RESP 17–19; TEMP 97.8–99.9; O2SAT 94–100
--- NOTE | 2025-10-21 00:55 | DVHSR ---
APPROVED REPORT EXAM: LIMITED Two-dimensional and M-mode echocardiogram with Doppler and color Doppler. Blood Pressure: 115/93 mmHg INDICATION EF RISK FACTORS Height: 5' 11.5", Weight: 260 DIMENSIONS LVDd 3.5 (3.8-5.7cm) LA (2D) 3.6 (1.9-4.0cm) Aortic Root 3.3 (2.0-3.7cm) LVDs 2.3 (2.5-4.0cm) LA (MM) (1.9-4.0cm) Aortic Cusp Exc 1.6 (1.5-2.0cm) EF (%) 60.0 (55-70%) Rt. Atrium 3.7 (1.9-4.0cm) Asc. Aorta cm IVSd 0.9 (0.7-1.1cm) RV (D) (1.8-2.4cm) PWd 1.0 (0.7-1.1cm) Mitral Valve Mitral Mitral Stenosis E wave 1.20m/s MV Mean GR. mmHg A wave 0.70m/s MV Peak GR. mmHg E/A ratio 1.7 2D MVA cm2 Aortic Valve Aortic Valve Aortic Stenosis V1 1.80m/s AO Mean GR. 11mmHg V2 2.10m/s AO Peak GR. 19mmHg LVOT Diameter 2.0 (1.8-2.4cm) Doppler MAC 2.69cm2 Other Information Quality : Technically Limited Rhythm : Technically limited study due to body habitus and patient position. Conclusion MILD LVH AND MILD LV DIASTOLIC DYSFUNCTION LV EF IS 65% SLIGHTLY DILATED LA MODERATELY CALCIFIED AORTIC LEAFLETS NORMAL MV,TV AND PV NO EFFUSION
--- NOTE | 2025-10-21 15:29 | DVH ---
PROCEDURE: ULTRASOUND GUIDED THORACENTESIS USING TEMPORARY CATHETER HISTORY: PLEURAL EFFUSION DOCUMENTATION: Informed consent was obtained and a procedural time out was performed. FINDINGS: The risks and benefits of the procedure including bleeding, infection and pneumothorax were explained to the patient and written informed consent obtained. Optimal site for puncture long the right posterior chest wall was determined using real-time ultrasound and the region sterilized. Local anesthesia was instilled. A 5 Israeli catheter was then advanced into the pleural space and 1.6 liters of straw colored fluid was removed. The patient tolerated the procedure well. IMPRESSION: Ultrasound guided right thoracentesis. Procedure done by Dr. LYNN
--- NOTE | 2025-10-21 15:33 | DVH ---
CHEST RADIOGRAPH INDICATION: Post thoracentesis. R/O Pneumo TECHNIQUE: Single frontal view of the chest was obtained COMPARISON: XY CHEST PORTABLE on DOS: 10/19/25, CT CHEST WITHOUT CONTRAST on DOS: 10/18/25, XY CHEST PORTABLE on DOS: 10/18/25, XY CHEST PORTABLE on DOS: 10/19/25 FINDINGS: Lines and Tubes: None Lungs: Persistent opacification of the right kandice thorax is noted unchanged from 10/18/2025. Pleura: No effusion. No pneumothorax. Cardiomediastinal contours: Unremarkable Bones: No acute osseous abnormality. IMPRESSION: 1. Persistent opacification right kandice thorax. No interval change when compared to prior study
--- NOTE | 2025-10-21 19:36 | DVHPN2 ---
Subjective SOB still present Reviewed: H&P Changes from previous H/P or p: No Changes Objective Vitals Vital Signs Date Time Temp Pulse Resp B/P (MAP) Pulse Ox O2 Delivery O2 Flow Rate FiO2 10/21/25 17:00 99.9 84 19 125/81 (96) 94 99.9 10/21/25 08:10 Nasal Cannula* 2 28 Intake/Output Intake and Output 10/21/25 05:00 Intake Total 1650 ml Balance 1650 ml Intake Oral 1650 ml # Voids 4 # Bowel Movements 1 General Appearance: Alert, Oriented X3 HEENT: Atraumatic Cardiovascular: Regular rate, Normal S1, Normal S2 Abdomen: Normal bowel sounds Medications Current Medications Medications Dose Ordered Sig/Jomar Route Start Time Stop Time Status Last Admin Dose Admin Albuterol 2.5 mg Q6HPRN PRN NEB 10/18/25 19:45 10/20/25 09:04 2.5 MG Acetaminophen/ Hydrocodone Bitart 1 tab Q4HP PRN PO 10/18/25 19:45 10/21/25 15:40 1 TAB Temazepam 15 mg QHSP PRN PO 10/18/25 19:45 Ondansetron HCl 4 mg Q4HP PRN IV 10/18/25 19:45 10/20/25 02:44 4 MG Acetaminophen 650 mg Q6HP PRN PO 10/18/25 19:45 Morphine Sulfate 2 mg Q4HPRN PRN IV 10/19/25 14:15 10/20/25 02:48 2 MG Laboratory Results Laboratory Tests 10/19/25 08:10 Microbiology Microbiology Date/Time Source Procedure Growth Status 10/19/25 14:30 Pleural Fluid Gram Stain - Final Resulted 10/19/25 14:30 Pleural Fluid Body Fluid Culture - Preliminary No growth Resulted Assessment/Plan Assessment/Plan Large right pleural effusion acute hypoxic respiratory failure due to pleural effusion Obesity Tx s/p thoraco 1.5L Pending another thoraco Oxygen Plan discussed with: Patient My Orders Orders - RYAN CAPPS MD Procedure Category Date Status Time Thoracentesis US 10/21/25 Resulted 14:22 Date of Service: Oct 21, 2025 Billing Provider: RYAN CAPPS MD Common Visit Codes: [id number] INP/OBS CARE(HIGH) RYAN CAPPS MD Oct 21, 2025 19:36
--- NOTE | 2025-10-21 22:56 | DVHPN2 ---
Subjective DOS: 10/21/2025 Patient seen and examined at bedside. Currently on room air Overnight events reviewed. Reviewed: H&P Changes from previous H/P or p: No Changes Objective Vitals Vital Signs Date Time Temp Pulse Resp B/P (MAP) Pulse Ox O2 Delivery O2 Flow Rate FiO2 10/21/25 21:06 98.0 85 18 151/92 (111) 96 98.0 10/21/25 20:00 Nasal Cannula* 2 28 Intake/Output Intake and Output 10/21/25 07:00 Intake Total 1650 ml Balance 1650 ml Intake Oral 1650 ml # Voids 4 # Bowel Movements 1 Exam Gen.: Patient lying in bed in no apparent distress. On room air. Head: Normocephalic, atraumatic. Eyes: EOMI/PERRLA. Ears: Normal hearing. Normal anatomy. Neck/trachea: Trachea midline, supple. Nose: Normal external anatomy. Mouth: Moist mucous membranes. Chest: Decreased air entry bilaterally. No wheezing or rhonchi. Cardiovascular: Positive S1, positive S2. Regular rate and rhythm. Abdomen: Positive bowel sounds in all 4 quadrants. Soft, non-tender, non- distended. : Deferred. Rectal: Deferred. Skin: Warm, dry. Intact. Extremities: 2+ radial pulses bilaterally. No lower extremity edema. Neuro: Awake, alert, oriented x3. No gross motor or sensory deficits. Cranial nerves II through XII intact. Gait not assessed. General Appearance: Alert, Oriented X3 HEENT: Atraumatic Cardiovascular: Regular rate, Normal S1, Normal S2 Abdomen: Normal bowel sounds Medications Current Medications Medications Dose Ordered Sig/Jomar Route Start Time Stop Time Status Last Admin Dose Admin Albuterol 2.5 mg Q6HPRN PRN NEB 10/18/25 19:45 10/20/25 09:04 2.5 MG Acetaminophen/ Hydrocodone Bitart 1 tab Q4HP PRN PO 10/18/25 19:45 10/21/25 21:47 1 TAB Temazepam 15 mg QHSP PRN PO 10/18/25 19:45 Ondansetron HCl 4 mg Q4HP PRN IV 10/18/25 19:45 10/20/25 02:44 4 MG Acetaminophen 650 mg Q6HP PRN PO 10/18/25 19:45 Morphine Sulfate 2 mg Q4HPRN PRN IV 10/19/25 14:15 10/20/25 02:48 2 MG Laboratory Results Laboratory Tests 10/19/25 08:10 Microbiology Microbiology Date/Time Source Procedure Growth Status 10/19/25 14:30 Pleural Fluid Gram Stain - Final Resulted 10/19/25 14:30 Pleural Fluid Body Fluid Culture - Preliminary No growth Resulted Assessment/Plan Assessment/Plan Impression: Acute hypoxic respiratory failure Pleural effusion Atelectasis, compressive Elevated D-dimer Obesity Events: On room air Supplemental oxygen PRN No distress Patient underwent repeat right thoracentesis today by Interventional Radiology. See IR notes- 1600 ml of dark jefferson/bloody fluid removed. CXR post thora revealed Persistent opacification of right hemithorax. No interval change when compared to prior study S/p right thoracentesis on 10/19/25 with 1.5 liters of fluid removed from right pleural space. CXR post procedure revealed persistent opacification of right hemithorax. Findings c/w large right pleural effusion. Continue bronchodilators Incentive spirometry Pain control Avoid oversedation Cardiology recs appreciated Diurese to maintain euvolemia Monitor renal function. Monitor electrolytes. Supplement as necessary. Labs and imaging reviewed. Rest of plan as noted below. Plan: Supplemental oxygen PRN Titrate to keep O2 sats above 92%. CXR (10/18) notable for complete opacification of the right hemithorax with leftward mediastinal shift which may be from large pleural effusion with associated atelectasis. Underlying pneumonia/mass cannot be excluded. CT chest reviewed; Large right pleural effusion causing depression of the right hemidiaphragm and leftward shift of the mediastinum and complete collapse of the right lung. A 5.2 cm spherical lesion in the anterior portion of the collapsed right lung that is concerning for malignancy. Recommend contrast-enhanced CT of the chest AFTER thoracentesis and the lung has been allowed to re-expand in order to better evaluate. Follow up Cardiology recs Bronchodilators. Incentive spirometry Monitor renal function. Monitor electrolytes. Supplement as necessary. Monitor ins and outs. Pain control Avoid oversedation Recommend diet and lifestyle modifications for weight reduction Obesity complicates all care DVT prophylaxis. Prognosis: Poor given patient's multiple co-morbidities. Rest of plan per hospitalist and other consultants. Thank you, Dr. Vaca, for allowing me to participate in this patient's care. Further recommendations will depend on the patient's clinical course. Please do not hesitate to contact me if you have any questions or concerns. This medical document was created using an electronic medical record system with [employer] dictation system. Although these documentations are being carefully reviewed, there may still be some phonetic and typographical changes. The errors are purely typographical, due to imperfection on the software program, and do not reflect any compromise in the patient's medical care. Plan discussed with: Patient, Other (ELISEO Finnegan) Visit Coding Pulmonary Billing Provider: OSBALDO AYOUB MD Date of Service if different f: Oct 21, 2025 Common Visit Codes: [id number] INP/OBS CARE(HIGH) OSBALDO AYOUB MD Oct 21, 2025 22:56
[2025-10-22] VITALS (8 sets, daily range): BP systolic 114–151; BP diastolic 72–93; PULSE 80–92; RESP 16–22; TEMP 97.2–99.1; O2SAT 92–96
--- NOTE | 2025-10-22 12:37 | DVHPN2 ---
Subjective SOB still present Reviewed: H&P Changes from previous H/P or p: No Changes Objective Vitals Vital Signs Date Time Temp Pulse Resp B/P (MAP) Pulse Ox O2 Delivery O2 Flow Rate FiO2 10/22/25 09:00 98.5 87 17 136/85 (102) 94 98.5 10/22/25 07:59 Nasal Cannula* 2 28 Intake/Output Intake and Output 10/22/25 06:59 Intake Total 2000 ml Output Total 1600 ml Balance 400 ml Intake Oral 2000 ml Output Drainage Total 1600 ml # Voids 7 # Bowel Movements 1 General Appearance: Alert, Oriented X3 HEENT: Atraumatic Cardiovascular: Regular rate, Normal S1, Normal S2 Abdomen: Normal bowel sounds Medications Current Medications Medications Dose Ordered Sig/Jomar Route Start Time Stop Time Status Last Admin Dose Admin Albuterol 2.5 mg Q6HPRN PRN NEB 10/18/25 19:45 10/20/25 09:04 2.5 MG Acetaminophen/ Hydrocodone Bitart 1 tab Q4HP PRN PO 10/18/25 19:45 10/22/25 07:58 1 TAB Temazepam 15 mg QHSP PRN PO 10/18/25 19:45 Ondansetron HCl 4 mg Q4HP PRN IV 10/18/25 19:45 10/20/25 02:44 4 MG Acetaminophen 650 mg Q6HP PRN PO 10/18/25 19:45 Morphine Sulfate 2 mg Q4HPRN PRN IV 10/19/25 14:15 10/20/25 02:48 2 MG Laboratory Results Laboratory Tests 10/19/25 08:10 Microbiology Microbiology Date/Time Source Procedure Growth Status 10/19/25 14:30 Pleural Fluid Gram Stain - Final Resulted 10/19/25 14:30 Pleural Fluid Body Fluid Culture - Preliminary No growth Resulted Assessment/Plan Assessment/Plan Large right pleural effusion acute hypoxic respiratory failure due to pleural effusion Obesity Right lung mass Tx s/p thoraco 1.5L Had another thoraco Fluid showing exudate Oxygen Plan discussed with: Patient My Orders Orders - RYAN CAPPS MD Procedure Category Date Status Time Thoracentesis US 10/21/25 Resulted 14:22 Date of Service: Oct 22, 2025 Billing Provider: RYAN CAPPS MD Common Visit Codes: [id number] INP/OBS CARE(HIGH) RYAN CAPPS MD Oct 22, 2025 12:37
--- NOTE | 2025-10-22 19:28 | DVHNC2 ---
Procedure - Cook Mamadou Pigtail right Chest tube placement procedure note: Physician: Dr Nathaniel Koenig Date: October 22, 2025 Time: 701 p.m. Diagnosis: Large right pleural effusion Indication: evacuation of fluid from pleural space Consent: Consent was obtained from patient prior to procedure. Indication, risks, and benefits were explained at length. Time out time: 1855 P.m. Patient medications and allergies reviewed. The risks and benefits of the procedure and the sedation options and risk were discussed with the patient. All questions were answered and informed consent was obtained. Patient identification and proposed procedure were verified prior to the procedure by the physician, and a nurse in the patient's room. The heart rate, respiratory rate, oxygen saturations, blood pressure, adequacy of pulmonary ventilation, and response to care were monitored throughout the procedure. The physical status of the patient was reassessed after the procedure. Procedure summary: A time-out was performed and a chest x-ray was reviewed prior to procedure. The appropriate site was confirmed and marked. My hands were washed immediately prior to the procedure, I wore a surgical cap, mask with protective eyewear, sterile gown and sterile gloves throughout the procedure. The patient was prepped and draped in a sterile manner using chlorhexidine scrub after the appropriate level was percussed and confirmed by ultrasound. 1% lidocaine was used to anesthetize the skin, subcutaneous tissue, superior aspect of the rib periosteum and parietal pleura. An 18-gauge needle with syringe attached was inserted into the pleural space with aspiration of serosanguineous pleural fluid to verify placement. A guidewire was advanced into the pleural space and needle was withdrawn. 0.5 cm incision was made through the skin and subcutaneous tissues were dilated with a dilator. The 14 [place] Cook Mamadou pigtail chest drain was inserted into the pleural space. The drain was then immediately connected to a Pleur-evac. Adequate placement confirmed by fluid drainage. The chest tube was sutured in place and dressing was applied. The patient tolerated the procedure well. CXR post procedure is pending. Patient had approximately 1.3 L removed of serosanguineous fluid before he started experiencing chest discomfort. Chest x-ray is still pending. There is a possibility of trapped lung. We will confirm with chest x-ray. Estimated blood loss: Less than 5 mL. Complications: None. CPT 06925 Visit Coding Pulmonary Billing Provider: OSBALDO KOENIG MD Date of Service if different f: Oct 22, 2025 Common Visit Codes: PROCEDURE ONLY Procedure Codes: [id number] OF CHEST TUBE (79799 Right Chest tube placement.) OSBALDO KOENIG MD Oct 22, 2025 19:28
--- NOTE | 2025-10-22 20:46 | DVH ---
CHEST RADIOGRAPH INDICATION: chest tube placement TECHNIQUE: Single frontal view of the chest was obtained COMPARISON: XY CHEST XRAY 1 VIEW on DOS: 10/21/25, XY CHEST PORTABLE on DOS: 10/19/25, XY CHEST PORTABLE on DOS: 10/18/25 FINDINGS: Lines and Tubes: Right-sided chest tube is in place in the right base above the right diaphragm. Lungs: No focal consolidation. Pleura: Decreasing right pleural effusion is seen. No pneumothorax. Cardiomediastinal contours: Unremarkable Bones: No acute osseous abnormality. IMPRESSION: 1. Chest tube in place in the right lower lung field above the right diaphragm. 2. Decreased right pleural effusion.
--- NOTE | 2025-10-22 23:49 | DVHPN2 ---
Subjective DOS: 10/22/2025 Patient seen and examined at bedside. Currently on room air Overnight events reviewed. Reviewed: H&P Changes from previous H/P or p: No Changes Objective Vitals Vital Signs Date Time Temp Pulse Resp B/P (MAP) Pulse Ox O2 Delivery O2 Flow Rate FiO2 10/22/25 21:00 98.4 80 22 146/93 (110) 95 98.4 10/22/25 07:59 Nasal Cannula* 2 28 Intake/Output Intake and Output 10/22/25 07:00 Intake Total 2000 ml Output Total 1600 ml Balance 400 ml Intake Oral 2000 ml Drainage Total 1600 ml # Voids 7 # Bowel Movements 1 Exam Gen.: Patient lying in bed in no apparent distress. On room air. Head: Normocephalic, atraumatic. Eyes: EOMI/PERRLA. Ears: Normal hearing. Normal anatomy. Neck/trachea: Trachea midline, supple. Nose: Normal external anatomy. Mouth: Moist mucous membranes. Chest: Decreased air entry bilaterally. No wheezing or rhonchi. Cardiovascular: Positive S1, positive S2. Regular rate and rhythm. Abdomen: Positive bowel sounds in all 4 quadrants. Soft, non-tender, non- distended. : Deferred. Rectal: Deferred. Skin: Warm, dry. Intact. Extremities: 2+ radial pulses bilaterally. No lower extremity edema. Neuro: Awake, alert, oriented x3. No gross motor or sensory deficits. Cranial nerves II through XII intact. Gait not assessed. General Appearance: Alert, Oriented X3 HEENT: Atraumatic Cardiovascular: Regular rate, Normal S1, Normal S2 Abdomen: Normal bowel sounds Medications Current Medications Medications Dose Ordered Sig/Jomar Route Start Time Stop Time Status Last Admin Dose Admin Acetaminophen/ Hydrocodone Bitart 1 tab Q4HP PRN PO 10/18/25 19:45 10/22/25 21:18 1 TAB Temazepam 15 mg QHSP PRN PO 10/18/25 19:45 Ondansetron HCl 4 mg Q4HP PRN IV 10/18/25 19:45 10/22/25 19:39 4 MG Acetaminophen 650 mg Q6HP PRN PO 10/18/25 19:45 Morphine Sulfate 2 mg Q4HPRN PRN IV 10/19/25 14:15 10/22/25 19:39 2 MG Laboratory Results Laboratory Tests 10/19/25 08:10 Microbiology Microbiology Date/Time Source Procedure Growth Status 10/19/25 14:30 Pleural Fluid Gram Stain - Final Resulted 10/19/25 14:30 Pleural Fluid Body Fluid Culture - Preliminary No growth Resulted Assessment/Plan Assessment/Plan Impression: Acute hypoxic respiratory failure Pleural effusion Atelectasis, compressive Elevated D-dimer Obesity Events: On room air Supplemental oxygen PRN No distress CXR notable for complete opacification of right lung field, likely trapped lung. Recommend right chest tube placement. Plan to place chest tube in AM. Limited chest ultrasound shows large right pleural effusion. Patient underwent repeat right thoracentesis yesterday (10/21/25) by Interventional Radiology. See IR notes- 1600 ml of dark jefferson/bloody fluid removed. CXR post thora revealed Persistent opacification of right hemithorax. No interval change when compared to prior study Fluid cytology pending S/p right thoracentesis on 10/19/25 with 1.5 liters of fluid removed from right pleural space. CXR post procedure revealed persistent opacification of right hemithorax. Findings c/w large right pleural effusion. Continue bronchodilators Incentive spirometry Pain control Avoid oversedation Cardiology recs appreciated Diurese to maintain euvolemia Monitor renal function. Monitor electrolytes. Supplement as necessary. Labs and imaging reviewed. Rest of plan as noted below. Plan: Supplemental oxygen PRN Titrate to keep O2 sats above 92%. CXR (10/18) notable for complete opacification of the right hemithorax with leftward mediastinal shift which may be from large pleural effusion with associated atelectasis. Underlying pneumonia/mass cannot be excluded. CT chest reviewed; Large right pleural effusion causing depression of the right hemidiaphragm and leftward shift of the mediastinum and complete collapse of the right lung. A 5.2 cm spherical lesion in the anterior portion of the collapsed right lung that is concerning for malignancy. Recommend contrast-enhanced CT of the chest AFTER thoracentesis and the lung has been allowed to re-expand in order to better evaluate. Follow up Cardiology recs Bronchodilators. Incentive spirometry Monitor renal function. Monitor electrolytes. Supplement as necessary. Monitor ins and outs. Pain control Avoid oversedation Recommend diet and lifestyle modifications for weight reduction Obesity complicates all care DVT prophylaxis. Prognosis: Poor given patient's multiple co-morbidities. Rest of plan per hospitalist and other consultants. Thank you, Dr. Vaca, for allowing me to participate in this patient's care. Further recommendations will depend on the patient's clinical course. Please do not hesitate to contact me if you have any questions or concerns. This medical document was created using an electronic medical record system with [employer] dictation system. Although these documentations are being carefully reviewed, there may still be some phonetic and typographical changes. The errors are purely typographical, due to imperfection on the software program, and do not reflect any compromise in the patient's medical care. Plan discussed with: Patient, Other (RN Sivan) My Orders Orders - OSBALDO AYOUB MD Procedure Category Date Status Time Chest Portable XY 10/22/25 Resulted 19:22 Visit Coding Pulmonary Billing Provider: OSBALDO AYOUB MD Date of Service if different f: Oct 22, 2025 Common Visit Codes: [id number] INP/OBS CARE(HIGH) OSBALDO AYOUB MD Oct 22, 2025 23:49
[2025-10-23] VITALS (20 sets, daily range): BP systolic 122–148; BP diastolic 71–92; PULSE 76–99; RESP 12–20; TEMP 97.2–98.5; O2SAT 92–97
--- NOTE | 2025-10-23 15:52 | DVHPN2 ---
Subjective SOB still present Reviewed: H&P Changes from previous H/P or p: No Changes Objective Vitals Vital Signs Date Time Temp Pulse Resp B/P (MAP) Pulse Ox O2 Delivery O2 Flow Rate FiO2 10/23/25 14:00 87 14 148/77 (100) 96 10/23/25 14:00 Nasal Cannula* 2 28 10/23/25 12:00 98.2 98.2 Intake/Output Intake and Output 10/23/25 05:00 Intake Total 1020 ml Output Total 750 ml Balance 270 ml Intake Oral 1020 ml Output Urine Total 750 ml # Bowel Movements 1 General Appearance: Alert, Oriented X3 HEENT: Atraumatic Cardiovascular: Regular rate, Normal S1, Normal S2 Abdomen: Normal bowel sounds Medications Current Medications Medications Dose Ordered Sig/Jomar Route Start Time Stop Time Status Last Admin Dose Admin Acetaminophen/ Hydrocodone Bitart 1 tab Q4HP PRN PO 10/18/25 19:45 10/23/25 13:44 1 TAB Temazepam 15 mg QHSP PRN PO 10/18/25 19:45 Ondansetron HCl 4 mg Q4HP PRN IV 10/18/25 19:45 10/23/25 04:31 4 MG Acetaminophen 650 mg Q6HP PRN PO 10/18/25 19:45 Morphine Sulfate 2 mg Q4HPRN PRN IV 10/19/25 14:15 10/23/25 04:32 2 MG Laboratory Results Laboratory Tests 10/19/25 08:10 Microbiology Microbiology Date/Time Source Procedure Growth Status 10/19/25 14:30 Pleural Fluid Gram Stain - Final Resulted 10/19/25 14:30 Pleural Fluid Body Fluid Culture - Preliminary No growth Resulted Assessment/Plan Assessment/Plan Large right pleural effusion acute hypoxic respiratory failure due to pleural effusion Obesity Right lung mass Tx s/p thoraco 1.5L Had another thoraco S/P Chest tube Fluid showing exudate Oxygen Per Surgery needs to be transferred to tertiary center for management Plan discussed with: Patient Date of Service: Oct 23, 2025 Billing Provider: RYAN CAPPS MD Common Visit Codes: [id number] INP/OBS CARE(HIGH) RYAN CAPPS MD Oct 23, 2025 15:51
--- NOTE | 2025-10-23 17:39 | DVH ---
CHEST RADIOGRAPH INDICATION: CHEST TUBE RE-CLAMPED D/T PAIN TECHNIQUE: Single frontal view of the chest was obtained COMPARISON: XY CHEST PORTABLE on DOS: 10/22/25, XY CHEST XRAY 1 VIEW on DOS: 10/21/25, XY CHEST PORTABLE on DOS: 10/19/25 FINDINGS: Lines and Tubes: Right-sided chest tube is noted terminating over The right Lateral lower lung zone. Lungs: Near-complete opacification of the right hemithorax No pneumothorax. Cardiomediastinal contours: Limited evaluation of the Heart size due to opacification of the right hemithorax. Bones: No acute osseous abnormality. IMPRESSION: Large right-sided pleural effusion with associated atelectasis; relatively unchanged from prior imaging underlying infectious process can not be excluded.
[2025-10-23] MEDS: HYDROmorphone HCL 2 MG/ML VL/or syr IV PRN (18:31)
--- NOTE | 2025-10-23 20:42 | DVH ---
CHEST RADIOGRAPH INDICATION: CHEST TUBE RE-CLAMPED D/T SEVERE PAIN TECHNIQUE: Single frontal view of the chest was obtained COMPARISON: XY CHEST XRAY 1 VIEW on DOS: 10/23/25, XY CHEST PORTABLE on DOS: 10/22/25, XY CHEST XRAY 1 VIEW on DOS: 10/21/25 FINDINGS: Lines and Tubes: Chest tube in the right lung base clamped bowel a 50-60% right pneumothorax. Lungs: No focal consolidation. Pleura: No effusion. No pneumothorax. Cardiomediastinal contours: Unremarkable Bones: No acute osseous abnormality. IMPRESSION: 1. Chest tube in the right base. 2. 50-60% pneumothorax on the right. CRITICAL FINDINGS Critical Result: RIGHT-SIDED CHEST TUBE HAS BEEN CLAMPED. 50-60% right pneumothorax. Findings discussed with En Son RN at 10/23/2025 08:27 PM, and acknowledged receipt and understanding of the findings. ..
--- NOTE | 2025-10-23 23:33 | DVHPN2 ---
Subjective DOS: 10/23/2025 Patient seen and examined at bedside. Remains on room air Overnight events reviewed. Reviewed: H&P Changes from previous H/P or p: No Changes Objective Vitals Vital Signs Date Time Temp Pulse Resp B/P (MAP) Pulse Ox O2 Delivery O2 Flow Rate FiO2 10/23/25 21:28 94 18 137/89 10/23/25 21:00 98.1 97 98.1 10/23/25 18:00 Nasal Cannula* 3 32 Intake/Output Intake and Output 10/23/25 07:00 Intake Total 1020 ml Output Total 2150 ml Balance -1130 ml Intake Oral 1020 ml Output Urine Total 750 ml Chest Tube Drainage Total 1400 ml # Bowel Movements 1 Exam Gen.: Patient lying in bed in no apparent distress. On room air. Head: Normocephalic, atraumatic. Eyes: EOMI/PERRLA. Ears: Normal hearing. Normal anatomy. Neck/trachea: Trachea midline, supple. Nose: Normal external anatomy. Mouth: Moist mucous membranes. Chest: Decreased air entry bilaterally. No wheezing or rhonchi. Cardiovascular: Positive S1, positive S2. Regular rate and rhythm. Abdomen: Positive bowel sounds in all 4 quadrants. Soft, non-tender, non- distended. : Deferred. Rectal: Deferred. Skin: Warm, dry. Intact. Extremities: 2+ radial pulses bilaterally. No lower extremity edema. Neuro: Awake, alert, oriented x3. No gross motor or sensory deficits. Cranial nerves II through XII intact. Gait not assessed. General Appearance: Alert, Oriented X3 HEENT: Atraumatic Cardiovascular: Regular rate, Normal S1, Normal S2 Abdomen: Normal bowel sounds Medications Current Medications Medications Dose Ordered Sig/Jomar Route Start Time Stop Time Status Last Admin Dose Admin Acetaminophen/ Hydrocodone Bitart 1 tab Q4HP PRN PO 10/18/25 19:45 10/23/25 22:46 1 TAB Temazepam 15 mg QHSP PRN PO 10/18/25 19:45 Ondansetron HCl 4 mg Q4HP PRN IV 10/18/25 19:45 10/23/25 04:31 4 MG Acetaminophen 650 mg Q6HP PRN PO 10/18/25 19:45 Morphine Sulfate 2 mg Q4HPRN PRN IV 10/19/25 14:15 10/23/25 18:49 2 MG Hydromorphone HCl 0.5 mg Q2HPRN PRN IV 10/23/25 17:00 10/23/25 20:58 0.5 MG Laboratory Results Laboratory Tests 10/19/25 08:10 Microbiology Microbiology Date/Time Source Procedure Growth Status 10/19/25 14:30 Pleural Fluid Gram Stain - Final Resulted 10/19/25 14:30 Pleural Fluid Body Fluid Culture - Preliminary No growth Resulted Assessment/Plan Assessment/Plan Impression: Acute hypoxic respiratory failure Pleural effusion Atelectasis, compressive Elevated D-dimer Obesity Events: On room air Supplemental oxygen PRN No distress Chest tube was unclamped this PM. Pt had sero-sanguineous fluid output Patient had pain with -20 cmH2O of suction. No change in chest x-ray despite multiple thoracenteses and chest tube placement. Concern for malignancy discussed. We will discuss bronchoscopy with lung biopsy. If patient declines, then we will need to consider alternatives. Pt underwent right chest tube placement due to CXR showing complete opacification of right lung field, likely trapped lung. Limited chest ultrasound showed large right pleural effusion. Patient underwent repeat right thoracentesis on(10/21/25 by Interventional Radiology. See IR notes- 1600 ml of dark jefferson/bloody fluid removed. CXR post thora revealed Persistent opacification of right hemithorax. No interval change when compared to prior study Fluid cytology pending S/p right thoracentesis on 10/19/25 with 1.5 liters of fluid removed from right pleural space. CXR post procedure revealed persistent opacification of right hemithorax. Findings c/w large right pleural effusion. Continue bronchodilators Incentive spirometry Pain control Avoid oversedation Cardiology recs appreciated Diurese to maintain euvolemia Monitor renal function. Monitor electrolytes. Supplement as necessary. Labs and imaging reviewed. Rest of plan as noted below. Plan: Supplemental oxygen PRN Titrate to keep O2 sats above 92%. CXR (10/18) notable for complete opacification of the right hemithorax with leftward mediastinal shift which may be from large pleural effusion with associated atelectasis. Underlying pneumonia/mass cannot be excluded. CT chest reviewed; Large right pleural effusion causing depression of the right hemidiaphragm and leftward shift of the mediastinum and complete collapse of the right lung. A 5.2 cm spherical lesion in the anterior portion of the collapsed right lung that is concerning for malignancy. Recommend contrast-enhanced CT of the chest AFTER thoracentesis and the lung has been allowed to re-expand in order to better evaluate. Follow up Cardiology recs Bronchodilators. Incentive spirometry Monitor renal function. Monitor electrolytes. Supplement as necessary. Monitor ins and outs. Pain control Avoid oversedation Recommend diet and lifestyle modifications for weight reduction Obesity complicates all care DVT prophylaxis. Prognosis: Poor given patient's multiple co-morbidities. Rest of plan per hospitalist and other consultants. Thank you, Dr. Vaca, for allowing me to participate in this patient's care. Further recommendations will depend on the patient's clinical course. Please do not hesitate to contact me if you have any questions or concerns. This medical document was created using an electronic medical record system with [employer] dictation system. Although these documentations are being carefully reviewed, there may still be some phonetic and typographical changes. The errors are purely typographical, due to imperfection on the software program, and do not reflect any compromise in the patient's medical care. Plan discussed with: Patient, Other (RN Francis) My Orders Orders - OSBALDO AYOUB MD Procedure Category Date Status Time Cytology SERENITY 10/23/25 Uncollected 08:38 Transfer Orders XFER 10/23/25 Transmitted 09:04 Mrsa Screen SERENITY 10/23/25 In Process 14:44 Chest Xray 1 View XY 10/23/25 Resulted 15:42 Hydromorphone PHA 10/23/25 In Process Injection (Dilaudid 17:00 Transfer Orders XFER 10/23/25 Transmitted 16:51 Chest Xray 1 View XY 10/23/25 Resulted 19:03 Chest Portable XY 10/24/25 Logged 04:00 Visit Coding Pulmonary Billing Provider: OSBALDO AYOUB MD Date of Service if different f: Oct 23, 2025 Common Visit Codes: [id number] INP/OBS CARE(HIGH) OSBALDO AYOUB MD Oct 23, 2025 23:33
[2025-10-24] VITALS (17 sets, daily range): BP systolic 132–144; BP diastolic 81–96; PULSE 77–102; RESP 16–19; TEMP 97.3–98.1; O2SAT 2–97
--- NOTE | 2025-10-24 05:42 | DVH ---
CHEST RADIOGRAPH Indication: Pneumothorax Technique: Single frontal view of the chest was obtained COMPARISON: XY CHEST XRAY 1 VIEW on DOS: 10/23/25, XY CHEST XRAY 1 VIEW on DOS: 10/23/25, XY CHEST PORTABLE on DOS: 10/22/25, XY CHEST XRAY 1 VIEW on DOS: 10/21/25, XY CHEST PORTABLE on DOS: 10/19/25 FINDINGS: Lines and Tubes: Right chest tube in-situ. Lungs: Moderate right pneumothorax. Pleura: No effusion. Cardiomediastinal contours: Cardiomegaly. Bones: Unremarkable IMPRESSION: Moderate right pneumothorax with right chest tube in-situ, unchanged.
--- NOTE | 2025-10-24 13:41 | DVHPN2 ---
Subjective SOB still present Reviewed: H&P Changes from previous H/P or p: No Changes Objective Vitals Vital Signs Date Time Temp Pulse Resp B/P (MAP) Pulse Ox O2 Delivery O2 Flow Rate FiO2 10/24/25 12:58 100 18 135/90 10/24/25 08:57 98.1 94 98.1 10/24/25 06:00 Nasal Cannula* 1 24 Intake/Output Intake and Output 10/24/25 07:00 Intake Total 990 ml Output Total 1650 ml Balance -660 ml Intake Oral 990 ml Output Urine Total 1300 ml Chest Tube Drainage Total 350 ml # Voids 3 General Appearance: Alert, Oriented X3 HEENT: Atraumatic Cardiovascular: Regular rate, Normal S1, Normal S2 Abdomen: Normal bowel sounds Medications Current Medications Medications Dose Ordered Sig/Jomar Route Start Time Stop Time Status Last Admin Dose Admin Acetaminophen/ Hydrocodone Bitart 1 tab Q4HP PRN PO 10/18/25 19:45 10/23/25 22:46 1 TAB Temazepam 15 mg QHSP PRN PO 10/18/25 19:45 Ondansetron HCl 4 mg Q4HP PRN IV 10/18/25 19:45 10/24/25 06:08 4 MG Acetaminophen 650 mg Q6HP PRN PO 10/18/25 19:45 Morphine Sulfate 2 mg Q4HPRN PRN IV 10/19/25 14:15 10/24/25 10:00 2 MG Hydromorphone HCl 0.5 mg Q2HPRN PRN IV 10/23/25 17:00 10/24/25 12:58 0.5 MG Laboratory Results Laboratory Tests 10/19/25 08:10 Microbiology Microbiology Date/Time Source Procedure Growth Status 10/19/25 14:30 Pleural Fluid Gram Stain - Final Resulted 10/19/25 14:30 Pleural Fluid Body Fluid Culture - Preliminary No growth Resulted Assessment/Plan Assessment/Plan Large right pleural effusion acute hypoxic respiratory failure due to pleural effusion Obesity Right lung mass Right pneumothorax Tx s/p thoraco 1.5L Had another thoraco S/P Chest tube and continued Fluid showing exudate>citology with malignancy Oxygen Per Surgery needs to be transferred to tertiary center for management Plan discussed with: Patient Date of Service: Oct 24, 2025 Billing Provider: RYAN CAPPS MD Common Visit Codes: [id number] INP/OBS CARE(HIGH) GÉNESIS,RYAN J MD Oct 24, 2025 13:41
[2025-10-24] MEDS ORDERED: LORazepam 2MG/ML-1ML VIAL IV PRN (17:30)
[2025-10-24] MEDS ORDERED: LORazepam 2MG/ML-1ML VIAL IV ONE (17:30)
[2025-10-24] MEDS: HYDROmorphone HCL 2 MG/ML VL/or syr IV PRN (18:11)
--- NOTE | 2025-10-24 21:49 | DVHPN2 ---
Subjective DOS: 10/24/2025 Patient seen and examined at bedside. On supplemental oxygen Overnight events reviewed. Reviewed: H&P Changes from previous H/P or p: No Changes Objective Vitals Vital Signs Date Time Temp Pulse Resp B/P (MAP) Pulse Ox O2 Delivery O2 Flow Rate FiO2 10/24/25 21:36 18 94 Nasal Cannula* 1 24 10/24/25 21:09 77 133/86 10/24/25 21:00 97.3 97.3 Intake/Output Intake and Output 10/24/25 07:00 Intake Total 990 ml Output Total 1650 ml Balance -660 ml Intake Oral 990 ml Output Urine Total 1300 ml Chest Tube Drainage Total 350 ml # Voids 3 Exam Gen.: Patient lying in bed in no apparent distress. On supplemental oxygen Head: Normocephalic, atraumatic. Eyes: EOMI/PERRLA. Ears: Normal hearing. Normal anatomy. Neck/trachea: Trachea midline, supple. Nose: Normal external anatomy. Mouth: Moist mucous membranes. Chest: Decreased air entry bilaterally. No wheezing or rhonchi. Cardiovascular: Positive S1, positive S2. Regular rate and rhythm. Abdomen: Positive bowel sounds in all 4 quadrants. Soft, non-tender, non- distended. : Deferred. Rectal: Deferred. Skin: Warm, dry. Intact. Extremities: 2+ radial pulses bilaterally. No lower extremity edema. Neuro: Awake, alert, oriented x3. No gross motor or sensory deficits. Cranial nerves II through XII intact. Gait not assessed. General Appearance: Alert, Oriented X3 HEENT: Atraumatic Cardiovascular: Regular rate, Normal S1, Normal S2 Abdomen: Normal bowel sounds Medications Current Medications Medications Dose Ordered Sig/Jomar Route Start Time Stop Time Status Last Admin Dose Admin Acetaminophen/ Hydrocodone Bitart 1 tab Q4HP PRN PO 10/18/25 19:45 10/23/25 22:46 1 TAB Temazepam 15 mg QHSP PRN PO 10/18/25 19:45 Ondansetron HCl 4 mg Q4HP PRN IV 10/18/25 19:45 10/24/25 06:08 4 MG Acetaminophen 650 mg Q6HP PRN PO 10/18/25 19:45 Morphine Sulfate 2 mg Q4HPRN PRN IV 10/19/25 14:15 10/24/25 15:24 2 MG Lorazepam 0.5 mg Q6HP PRN IV 10/24/25 17:30 Hydromorphone HCl 1 mg Q2HPRN PRN IV 10/24/25 17:30 10/24/25 21:09 1 MG Laboratory Results Laboratory Tests 10/19/25 08:10 Microbiology Microbiology Date/Time Source Procedure Growth Status 10/23/25 09:44 Nose MRSA Screen - Final Complete 10/19/25 14:30 Pleural Fluid Gram Stain - Final Complete 10/19/25 14:30 Pleural Fluid Body Fluid Culture - Final Complete Assessment/Plan Assessment/Plan Impression: Acute hypoxic respiratory failure Pleural effusion Atelectasis, compressive Elevated D-dimer Obesity Events: Supplemental oxygen, on 1 LPM NC Taper O2 as tolerated No distress Plan to remove chest tube today. S/p removal of right chest tube. 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 Consider PET CT as outpatient vs. lung biopsy for diagnosis. 10/23 - Chest tube was unclamped; pt had sero-sanguineous fluid output Patient had pain with -20 cmH2O of suction. No change in chest x-ray despite multiple thoracenteses and chest tube placement. Concern for malignancy discussed. We will discuss bronchoscopy with lung biopsy. If patient declines, then we will need to consider alternatives. Pt underwent right chest tube placement due to CXR showing complete opacification of right lung field, likely trapped lung. Limited chest ultrasound showed large right pleural effusion. Patient underwent repeat right thoracentesis on(10/21/25 by Interventional Radiology. See IR notes- 1600 ml of dark jefferson/bloody fluid removed. CXR post thora revealed Persistent opacification of right hemithorax. No interval change when compared to prior study Fluid cytology pending S/p right thoracentesis on 10/19/25 with 1.5 liters of fluid removed from right pleural space. CXR post procedure revealed persistent opacification of right hemithorax. Findings c/w large right pleural effusion. Continue bronchodilators Incentive spirometry Pain control Avoid oversedation Cardiology recs appreciated Diurese to maintain euvolemia Monitor renal function. Monitor electrolytes. Supplement as necessary. Labs and imaging reviewed. Rest of plan as noted below. Plan: Supplemental oxygen Titrate to keep O2 sats above 92%. CXR (10/18) notable for complete opacification of the right hemithorax with leftward mediastinal shift which may be from large pleural effusion with associated atelectasis. Underlying pneumonia/mass cannot be excluded. CT chest reviewed; Large right pleural effusion causing depression of the right hemidiaphragm and leftward shift of the mediastinum and complete collapse of the right lung. A 5.2 cm spherical lesion in the anterior portion of the collapsed right lung that is concerning for malignancy. Recommend contrast-enhanced CT of the chest AFTER thoracentesis and the lung has been allowed to re-expand in order to better evaluate. Follow up Cardiology recs Bronchodilators. Incentive spirometry Monitor renal function. Monitor electrolytes. Supplement as necessary. Monitor ins and outs. Pain control Avoid oversedation Recommend diet and lifestyle modifications for weight reduction Obesity complicates all care DVT prophylaxis. Prognosis: Poor given patient's multiple co-morbidities. Rest of plan per hospitalist and other consultants. Thank you, Dr. Vaca, for allowing me to participate in this patient's care. Further recommendations will depend on the patient's clinical course. Please do not hesitate to contact me if you have any questions or concerns. This medical document was created using an electronic medical record system with [employer] dictation system. Although these documentations are being carefully reviewed, there may still be some phonetic and typographical changes. The errors are purely typographical, due to imperfection on the software program, and do not reflect any compromise in the patient's medical care. Plan discussed with: Patient, Other (RN Kunal) My Orders Orders - OSBALDO AYOUB MD Procedure Category Date Status Time Chest Portable XY 10/24/25 Resulted 04:00 Visit Coding Pulmonary Billing Provider: OSBALDO AYOUB MD Date of Service if different f: Oct 24, 2025 Common Visit Codes: [id number] INP/OBS CARE(HIGH) OSBALDO AYOUB MD Oct 24, 2025 21:49
[2025-10-25] VITALS (7 sets, daily range): BP systolic 121–132; BP diastolic 78–88; PULSE 90–98; RESP 17–20; TEMP 97–98.3; O2SAT 91–95
--- NOTE | 2025-10-25 00:45 | DVH ---
CHEST RADIOGRAPH INDICATION: Chest tube removal TECHNIQUE: Single frontal view of the chest was obtained COMPARISON: XY CHEST PORTABLE on DOS: 10/24/25, XY CHEST XRAY 1 VIEW on DOS: 10/23/25, XY CHEST XRAY 1 VIEW on DOS: 10/23/25, XY CHEST PORTABLE on DOS: 10/22/25, XY CHEST XRAY 1 VIEW on DOS: 10/21/25 FINDINGS: Lines and Tubes: None Lungs: Stable appearance of moderate right pneumothorax status post interval removal of right basilar small bore chest tube. The left lung is clear. No evidence of pleural effusion. Cardiomediastinal contours: Cardiomegaly. Bones: Unremarkable IMPRESSION: 1. Stable appearance of moderate right pneumothorax status post interval removal of right basilar small bore chest tube. 2. Cardiomegaly.
--- NOTE | 2025-10-25 09:01 | DVHPN2 ---
Subjective Pain is better Reviewed: H&P Changes from previous H/P or p: No Changes Objective Vitals Vital Signs Date Time Temp Pulse Resp B/P (MAP) Pulse Ox O2 Delivery O2 Flow Rate FiO2 10/25/25 08:47 91 17 122/81 10/25/25 05:05 97.7 93 97.7 10/25/25 00:00 Nasal Cannula* 1 24 Intake/Output Intake and Output 10/25/25 07:00 Intake Total 990 ml Balance 990 ml Intake Oral 990 ml # Voids 5 General Appearance: Alert, Oriented X3 HEENT: Atraumatic Cardiovascular: Regular rate, Normal S1, Normal S2 Abdomen: Normal bowel sounds Medications Current Medications Medications Dose Ordered Sig/Jomar Route Start Time Stop Time Status Last Admin Dose Admin Acetaminophen/ Hydrocodone Bitart 1 tab Q4HP PRN PO 10/18/25 19:45 10/23/25 22:46 1 TAB Temazepam 15 mg QHSP PRN PO 10/18/25 19:45 Ondansetron HCl 4 mg Q4HP PRN IV 10/18/25 19:45 10/25/25 08:49 4 MG Acetaminophen 650 mg Q6HP PRN PO 10/18/25 19:45 Morphine Sulfate 2 mg Q4HPRN PRN IV 10/19/25 14:15 10/25/25 08:47 2 MG Lorazepam 0.5 mg Q6HP PRN IV 10/24/25 17:30 Hydromorphone HCl 1 mg Q2HPRN PRN IV 10/24/25 17:30 10/25/25 04:33 1 MG Laboratory Results Laboratory Tests 10/19/25 08:10 Microbiology Microbiology Date/Time Source Procedure Growth Status 10/23/25 09:44 Nose MRSA Screen - Final Complete 10/19/25 14:30 Pleural Fluid Gram Stain - Final Complete 10/19/25 14:30 Pleural Fluid Body Fluid Culture - Final Complete Assessment/Plan Assessment/Plan Large right pleural effusion acute hypoxic respiratory failure due to pleural effusion Obesity Right lung mass Right pneumothorax Tx s/p thoraco 1.5L Had another thoraco S/P Chest tube now removed on 10/24 Fluid showing exudate>citology with malignancy Oxygen wean off Per pulmonary planned for possible lung biopsy Plan discussed with: Patient My Orders Orders - RYAN CAPPS MD Procedure Category Date Status Time * Construction Quality Control Manager CONS 10/24/25 Transmitted Consult Lorazepam 2mg/Ml Inj PHA 10/24/25 In Process (Ativan Inj) 17:30 Hydromorphone PHA 10/24/25 In Process Injection (Dilaudid 17:30 Date of Service: Oct 25, 2025 Billing Provider: RYAN CAPPS MD Common Visit Codes: [id number] INP/OBS CARE(HIGH) RYAN CAPPS MD Oct 25, 2025 09:01
[2025-10-25] MEDS ORDERED: HYDR-4902 PO (10:16)
--- NOTE | 2025-10-25 23:12 | DVHPN2 ---
Subjective DOS: 10/25/2025 Patient seen and examined at bedside. On supplemental oxygen Overnight events reviewed. Reviewed: H&P Changes from previous H/P or p: No Changes Objective Vitals Vital Signs Date Time Temp Pulse Resp B/P (MAP) Pulse Ox O2 Delivery O2 Flow Rate FiO2 10/25/25 13:00 98.3 98 20 121/79 (93) 91 98.3 10/25/25 08:00 Nasal Cannula* 2 28 Intake/Output Intake and Output 10/25/25 07:00 Intake Total 990 ml Balance 990 ml Intake Oral 990 ml # Voids 5 Exam Gen.: Patient lying in bed in no apparent distress. On supplemental oxygen Head: Normocephalic, atraumatic. Eyes: EOMI/PERRLA. Ears: Normal hearing. Normal anatomy. Neck/trachea: Trachea midline, supple. Nose: Normal external anatomy. Mouth: Moist mucous membranes. Chest: Decreased air entry bilaterally. No wheezing or rhonchi. Cardiovascular: Positive S1, positive S2. Regular rate and rhythm. Abdomen: Positive bowel sounds in all 4 quadrants. Soft, non-tender, non- distended. : Deferred. Rectal: Deferred. Skin: Warm, dry. Intact. Extremities: 2+ radial pulses bilaterally. No lower extremity edema. Neuro: Awake, alert, oriented x3. No gross motor or sensory deficits. Cranial nerves II through XII intact. Gait not assessed. General Appearance: Alert, Oriented X3 HEENT: Atraumatic Cardiovascular: Regular rate, Normal S1, Normal S2 Abdomen: Normal bowel sounds Laboratory Results Laboratory Tests 10/19/25 08:10 Microbiology Microbiology Date/Time Source Procedure Growth Status 10/23/25 09:44 Nose MRSA Screen - Final Complete 10/19/25 14:30 Pleural Fluid Gram Stain - Final Complete 10/19/25 14:30 Pleural Fluid Body Fluid Culture - Final Complete Assessment/Plan Assessment/Plan Impression: Acute hypoxic respiratory failure Pleural effusion Atelectasis, compressive Elevated D-dimer Obesity Metastatic cancer Events: Supplemental oxygen, on 1 LPM NC Taper O2 as tolerated No distress CXR done today reviewed; shows stable appearance of moderate right pneumothorax s/p interval removal of right basilar small bore chest tube. Cardiomegaly S/p removal of right chest tube. 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 Consider PET CT as outpatient vs. lung biopsy for diagnosis. Consult IR for lung biopsy vs. bronchoscopy Recommend outpatient followup with Oncology. Patient underwent right-sided chest tube placement due to CXR showing complete opacification of right lung field, likely trapped lung. Currently s/p removal of chest tube No change in chest x-ray despite multiple thoracenteses and chest tube placement. Concern for malignancy discussed. Discussed bronchoscopy with lung biopsy. If patient declines, then we will need to consider alternatives. Limited chest ultrasound showed large right pleural effusion. Patient underwent repeat right thoracentesis on 10/21/25 by Interventional Radiology. See IR notes- 1600 ml of dark jefferson/bloody fluid removed. CXR post thora revealed Persistent opacification of right hemithorax. No interval change when compared to prior study Fluid cytology pending S/p right thoracentesis on 10/19/25 with 1.5 liters of fluid removed from right pleural space. CXR post procedure revealed persistent opacification of right hemithorax. Findings c/w large right pleural effusion. Bronchodilators PRN Incentive spirometry Pain control Avoid oversedation Cardiology recs appreciated Labs and imaging reviewed. Rest of plan as noted below. Plan: Supplemental oxygen Titrate to keep O2 sats above 92%. CXR (10/18) notable for complete opacification of the right hemithorax with leftward mediastinal shift which may be from large pleural effusion with associated atelectasis. Underlying pneumonia/mass cannot be excluded. CT chest reviewed; Large right pleural effusion causing depression of the right hemidiaphragm and leftward shift of the mediastinum and complete collapse of the right lung. A 5.2 cm spherical lesion in the anterior portion of the collapsed right lung that is concerning for malignancy. Recommend contrast-enhanced CT of the chest AFTER thoracentesis and the lung has been allowed to re-expand in order to better evaluate. Follow up Cardiology recs Bronchodilators PRN. Incentive spirometry Diurese to maintain euvolemia Monitor renal function. Monitor electrolytes. Supplement as necessary. Pain control Avoid oversedation Recommend diet and lifestyle modifications for weight reduction Obesity complicates all care DVT prophylaxis. Prognosis: Poor given patient's multiple co-morbidities. Rest of plan per hospitalist and other consultants. Thank you, Dr. Vaca, for allowing me to participate in this patient's care. Further recommendations will depend on the patient's clinical course. Please do not hesitate to contact me if you have any questions or concerns. This medical document was created using an electronic medical record system with [employer] dictation system. Although these documentations are being carefully reviewed, there may still be some phonetic and typographical changes. The errors are purely typographical, due to imperfection on the software program, and do not reflect any compromise in the patient's medical care. Plan discussed with: Other (ELISEO Syed) My Orders Orders - OSBALDO AYOUB MD Procedure Category Date Status Time Chest Portable XY 10/25/25 Resulted 00:07 Visit Coding Pulmonary Billing Provider: OSBALDO AYOUB MD Date of Service if different f: Oct 25, 2025 Common Visit Codes: [id number] INP/OBS CARE(HIGH) OSBALDO AYOUB MD Oct 25, 2025 23:12
== END 2025-10-25 13:30 | disposition home or self-care (01) | DRG 199 ==
LOC: ER 15:24 → OVERFLOW 19:40 → EAST 10-19 05:07 → ICU WEST 10-23 09:32 → TELE-CENTR 10-23 19:46
PROVIDERS: ADMIT Hospitalist; ATTEND Hospitalist
PROC: 0W993ZZ Drainage of Right Pleural Cavity, Percutaneous Approach (ICD-10-PCS; principal; 2025-10-19)
PROC: 0W993ZZ Drainage of Right Pleural Cavity, Percutaneous Approach (ICD-10-PCS; 2025-10-21)
PROC: 0W9930Z Drainage of Right Pleural Cavity with Drainage Device, Percutaneous Approach (ICD-10-PCS; 2025-10-22)
DX: J93.9 Pneumothorax, unspecified (principal); J96.01 Acute respiratory failure with hypoxia; Z99.81 Dependence on supplemental oxygen; J91.8 Pleural effusion in other conditions classified elsewhere; E66.9 Obesity, unspecified; J98.11 Atelectasis; I51.7 Cardiomegaly; R91.8 Other nonspecific abnormal finding of lung field; Z68.36 Body mass index [BMI] 36.0-36.9, adult; Z88.0 Allergy status to penicillin; Z90.49 Acquired absence of other specified parts of digestive tract
CPT/HCPCS: 32555; 36415; 71045; 71250; 76942; 80048; 83880; 83986; 84484; 85025; 85379; 85610; 85730; 87071; 87081; 87205; 88341; 89051; 93005; 93306; 94640; 96374; 96375; 99291; G0378; J2405